=== PATIENT | female | born 1930 | race Caucasian/White ===

== ENCOUNTER 2018-03-17 14:34 | Inpatient (IN) | payer MEDICARE, OTHER ==
[~2018-03-17] VITALS: Ht 157.5 cm; Wt 64.0 kg
[2018-03-17 16:05] VITALS: BP 202/91
[2018-03-17] MEDS ORDERED: FOLI1TAB24 PO (16:08)
[2018-03-17] MEDS ORDERED: OMG1KC PO (16:08)
[2018-03-17] MEDS ORDERED: METF500T5 PO (16:08)
[2018-03-17] MEDS ORDERED: METO-333 PO (16:08)
[2018-03-17] MEDS ORDERED: FERR325T24 PO (16:08)
[2018-03-17] MEDS ORDERED: APIX5TAB PO (16:08)
[2018-03-17] MEDS ORDERED: FLEC50TA PO (16:08)
[2018-03-17] MEDS ORDERED: MAGN400T39 PO (16:08)
[2018-03-17] MEDS ORDERED: LISI10TA2 PO (16:08)
[2018-03-17] MEDS ORDERED: NS IV 1000 ML 1,000 ML ONE (16:36)
[2018-03-17] MEDS ORDERED: CRV25T PO (16:45)
[2018-03-17] MEDS ORDERED: SPIR25TA5 PO (16:45)
[2018-03-17] MEDS ORDERED: HYDR-3923 PO (16:45)
[2018-03-17] MEDS ORDERED: LISI-552 PO (16:45)
[2018-03-17 16:52] LABS: BASOPHILS % (AUTO) 0 % (0-10); EOSINOPHILS # (AUTO) 0.4 10^3/uL (0.0-0.3); EOSINOPHILS % (AUTO) 4 % (0-10); HEMATOCRIT 34 % (35-52); HEMOGLOBIN 11.5 G/DL (11.5-16.0); LYMPHOCYTES # (AUTO) 3.1 X 10^3 (1.0-4.0); LYMPHOCYTES % (AUTO) 34 % (12-44); MEAN CORPUSCULAR HEMOGLOBIN 29 PG (25-34); MEAN CORPUSCULAR HGB CONC 34 G/DL (32-36); MEAN CORPUSCULAR VOLUME 83 FL (80-99); MONOCYTES # (AUTO) 0.9 X 10^3 (0.0-1.0); MONOCYTES % (AUTO) 10 % (0-12); NEUTROPHILS # (AUTO) 4.8 X 10^3 (1.8-7.8); NEUTROPHILS % (AUTO) 52 % (42-75); PLATELET COUNT 222 10^3/uL (130-400); RED BLOOD COUNT 4.03 10^6/uL (4.35-5.85); WHITE BLOOD COUNT 9.2 10^3/uL (4.3-11.0)
[2018-03-17] MEDS ORDERED: AMLO5TAB2 PO (16:52)
--- NOTE | 2018-03-17 16:53 | History & Physical-Hospitalist ---
History of Present Illness HPI/Chief Complaint This is an 87-year-old white female who was accepted in transfer from the [facility] emergency room with hypercalcemia. The patient has known history of cancer of the breast status post mastectomy and renal cell carcinoma and nephrectomy of one kidney and then partial nephrectomy of another for recurrent malignancies. Per her history today noticed some abnormalities of her liver as well. her calcium was found to be 14.1 in [place] Exam Limitations: clinical condition Date Seen 03/17/18 Time Seen by Provider: 17:00 Attending Physician Alannah Meehan MD PCP Randal Roy DO Referring Physician Date of Admission Mar 17, 2018 at 16:21 Home Medications & Allergies Home Medications Reviewed patient Home Medication Reconciliation performed by pharmacy medication reconciliations clinical technician and/or nursing. Patients Allergies have been reviewed. Past Tqsavbi-Hyxuih-Dilnqn Hx Past Med/Social Hx: Reviewed Nursing Past Med/Soc Hx Patient Social History Marrital Status: Employed/Student: retired Past Medical History Surgeries: Appendectomy, Breast (Bilateral mastectomies), Hysterectomy, Pacemaker, Renal Cardiac: Atrial Fibrillation, Hypertension Cancer: Breast, Kidney Psychosocial: Depression (Her daughter recently ) Review of Systems Constitutional: weakness, weight loss EENTM: no symptoms reported Respiratory: dyspnea on exertion Cardiovascular: no symptoms reported Gastrointestinal: constipation, loss of appetite Genitourinary: no symptoms reported Musculoskeletal: no symptoms reported Skin: no symptoms reported Psychiatric/Neurological: Weakness Physical Exam Physical Exam Vital Signs Capillary Refill : Height, Weight, BMI Height: '" Weight: lbs. oz. kg; BMI Method: General Appearance: Chronically ill HEENT: Other (Dry oral mucosa) Neck: Limited Range of Motion Respiratory: Lungs Clear, Normal Breath Sounds, No Accessory Muscle Use, No Respiratory Distress Cardiovascular: Systolic Murmur, Irregularly Irregular Gastrointestinal: Normal Bowel Sounds, Non Tender, Soft Rectal: Deferred Back: Normal Inspection Extremity: Non Tender, No Calf Tenderness Neurologic/Psychiatric: Disoriented Skin: Ecchymosis, Pallor Results Results/Procedures Labs Patient resulted labs reviewed. Assessment/Plan Admission Diagnosis Hypercalcemia Admission Status: Observation Assessment and Plan 1. Hypercalcemia uncertain etiology-probably related to malignancy 2. History cancer of the breast.Per The patient no evidence of disease 3. History renal cell carcinoma status post nephrectomy 4. Atrial fibrillation 5. History of sick sinus syndrome status post pacemaker placement 6. Dehydration 7. Hypertension the patient is a poor historian and I'm unsure which medications she is taking and not 8. History of metastatic lesions to the liver per history although I have no documentation of that Plan to admit for aggressive IV fluids oncology consult and further evaluation Copy Copies To 1: RANDAL ROY KATHLEEN M MD Mar 17, 2018 16:53
[2018-03-17] MEDS: NS IV 1000 ML 1,000 ML IV SCH ×3 (17:00→23:50)
[2018-03-17 17:16] LABS: ALBUMIN 4.1 GM/DL (3.2-4.5); BILIRUBIN,TOTAL 0.9 MG/DL (0.1-1.0); CREATININE SERUM 1.52 MG/DL (0.60-1.30); MAGNESIUM 1.3 MG/DL (1.8-2.4); POTASSIUM 3.8 MMOL/L (3.6-5.0); TOTAL PROTEIN 7.2 GM/DL (6.4-8.2)
[2018-03-17 17:20] LABS: CALCIUM 13.9 MG/DL (8.5-10.1)
[2018-03-17] MEDS ORDERED: CALCITONIN 400 IUNITS/2 ML INJ (MIACALCIN) VIAL IJ ONE (19:15)
[2018-03-17 19:30] VITALS: BP 157/78
--- NOTE | 2018-03-17 19:34 | Consultation ---
History of Present Illness History of Present Illness Patient Consulted On(korin/time) 03/17/18 19:13 Date Seen by Provider: Mar 17, 2018 Time Seen by Provider: 19:50 History of Present Illness Ms. Kaur is an 87 yo female with h/o breast ca s/p bilateral mastectomies and kidney cancer s/p left partial nephrectomy and prior right nephrectomy. She was seen in the ED in [place] for progressive weakness. Patient said it all began earlier this year when she developed severe fatigue and was found to have a hgb of ~5. She was admitted to [facility] in the [place] and transfused several units of blood. She underwent EGD, colonoscopy and capsule endoscopy as an outpatient but there was no clear source of bleeding. She never recovered from fatigue since then. She has been to [facility] multiple times and [facility] once without any answers. She was seen in the [place] ED on 03/10 and was noted to have multiple liver lesions on CT abd/pelv. Outpatient follow up was planned. When patient was seen today, she was found to have a serum calcium of 14.1 (it was 9.8 on 03/10). Hgb was 10.8, WBC 8.52, plt 187, MCV 85.8, differential normal, ALT 46, alk phos 201, creatinine 1.6, eGFR 31. She was given IVF at least 1L and lasix 40mg IV in the ED prior to transfer. Patient mainly complains of fatigue and weakness. She also feels confused and has been having issues with her memory. Allergies and Home Medications Allergies Coded Allergies: No Known Drug Allergies (Unverified , 03/17/18) Home Medications Carvedilol 25 Mg Tab, 12.5 MG PO BID, (Reported) LAST FILLED #30 09-14-17 TAKES 1/2 (25MG) TABLET Lisinopril 20 Mg Tablet, 20 MG PO BID, (Reported) LAST FILLED #180 09-03-17 Spironolactone 25 Mg Tablet, 25 MG PO DAILY, (Reported) Patient Home Medication List Home Medication List Reviewed: Yes Past Pgrzuxk-Eamrbz-Trkmrx Hx Past Med/Social Hx: Reviewed Nursing Past Med/Soc Hx Patient Social History Alcohol Use: Denies Use Recreational Drug Use: Yes Smoking Status: Never a Smoker Recent Hopitalizations: No Seasonal Allergies Seasonal Allergies: No Past Medical History Surgeries: Yes Appendectomy, Breast (Bilateral mastectomies), Hysterectomy, Pacemaker, Renal Respiratory: Yes Sleep Apnea Currently Using CPAP: Yes Currently Using BIPAP: No Cardiac: Yes (pace maker) Atrial Fibrillation, Hypertension Neurological: No Genitourinary: No Gastrointestinal: Yes Chronic Constipation, Ulcer Musculoskeletal: Yes (recent falls) Endocrine: Yes HEENT: No Cancer: Yes Breast, Kidney Did You Recieve Any Treatments: Yes What Type of Treatment Did You: Surgical Intervention Psychosocial: Yes Depression (Her daughter recently ) Integumentary: No Blood Disorders: No Review of Systems-General Constitutional: see HPI, malaise, weakness EENTM: no symptoms reported Respiratory: no symptoms reported Cardiovascular: no symptoms reported Gastrointestinal: No abdominal pain; constipation; No diarrhea, No hematemesis ; loss of appetite; No nausea, No vomiting Genitourinary: no symptoms reported Musculoskeletal: No back pain, No joint pain, No muscle pain; muscle weakness Skin: no symptoms reported Psychiatric/Neurological: Denies Headache, Denies Numbness, Denies Paresthesia ; Weakness Physical Exam-General Problems Physical Exam Vital Signs Vital Signs - First Documented 03/17/18 16:05 Temp 97.4 Pulse 78 Resp 20 B/P (MAP) 202/91 (128) Pulse Ox 94 O2 Delivery Room Air Capillary Refill : General Appearance: WD/WN, no apparent distress Eyes: Bilateral Eye Normal Inspection, Bilateral Eye EOMI HEENT: normal ENT inspection Neck: full range of motion, supple, normal inspection Respiratory: chest non-tender, lungs clear, normal breath sounds, no respiratory distress, no accessory muscle use Cardiovascular: regular rate, rhythm, no edema, no murmur Peripheral Pulses: 2+ Radial Pulses (L) Gastrointestinal: normal bowel sounds, non tender, soft, no organomegaly, no pulsatile mass Back: normal inspection, no CVA tenderness, no vertebral tenderness Extremities: normal range of motion, non-tender, normal inspection, no pedal edema Neurologic/Psychiatric: artificial insemination technician II-XII nml as tested, no motor/sensory deficits, alert, normal mood/affect Skin: normal color, warm/dry Lymphatic: no adenopathy Assessment/Plan Assessment/Plan Admission Diagnosis/Plan 87 yo female with history of multiple malignancies presents with symptomatic severe hypercalcemia and numerous liver lesions. Findings extremely suspicious for metastatic cancer. We do not have records of her previous cancer care, which was done primarily by [facility] in the [place] area. We will address hypercalcemia acutely with aggressive hydration, diuretics, calcitonin and bisphosphonates. We will give calcitonin 4 IU/kg and pamidronate 90mg IV now. If there is some improvement by the morning but not normalization, would suggest giving calcitonin repeatedly every 6 hours for at least 24 hours. Once the hypercalcemia has been addressed, we should repeat restaging CTs with contrast along with nm bone scans or PET/CT (the latter scans probably as outpatient). Finally, we should have one of the abnormal lesions (probably liver) biopsied to confirm the diagnosis of cancer. Thank you for allowing me to participate in the care of Ms. Kaur. I will continue to follow along. Results Labs Labs Laboratory Tests 03/17/18 16:40: White Blood Count 9.2, Red Blood Count 4.03L, Hemoglobin 11.5, Hematocrit 34L, Mean Corpuscular Volume 83, Mean Corpuscular Hemoglobin 29, Mean Corpuscular Hemoglobin Concent 34, Red Cell Distribution Width 14.0, Platelet Count 222, Mean Platelet Volume 10.0, Neutrophils (%) (Auto) 52, Lymphocytes (%) (Auto) 34 , Monocytes (%) (Auto) 10, Eosinophils (%) (Auto) 4, Basophils (%) (Auto) 0, Neutrophils # (Auto) 4.8, Lymphocytes # (Auto) 3.1, Monocytes # (Auto) 0.9, Eosinophils # (Auto) 0.4H, Basophils # (Auto) 0.0, Sodium Level 137, Potassium Level 3.8, Chloride Level 98, Carbon Dioxide Level 30, Anion Gap 9, Blood Urea Nitrogen 29H, Creatinine 1.52H, Estimat Glomerular Filtration Rate 33, BUN/ Creatinine Ratio 19, Glucose Level 117H, Calcium Level 13.9*H, Phosphorus Level 3.4, Magnesium Level 1.3L, Total Bilirubin 0.9, Aspartate Amino Transf (AST/SGOT ) 33, Alanine Aminotransferase (ALT/SGPT) 46, Alkaline Phosphatase 205H, Total Protein 7.2, Albumin 4.1, Thyroid Stimulating Hormone (TSH) 1.66 03/17/18 18:20: Glucometer 105 ANALI DESOUZA MD Mar 17, 2018 19:34
[2018-03-17] MEDS ORDERED: NS IV NR (19:45)
[2018-03-17] MEDS ORDERED: PAMIDRONATE IV NR (19:45)
[2018-03-17] MEDS ORDERED: NS IV SCH (19:45)
[2018-03-17] MEDS ORDERED: PAMIDRONATE IV SCH (19:45)
[2018-03-17] MEDS ORDERED: CALCITONIN NASAL 200 INTLU/AC (FORTICAL) 3.7 ML BTL NR (20:00)
[2018-03-18] VITALS (10 sets, daily range): BP systolic 144–196; BP diastolic 68–87
[2018-03-18] MEDS: NS IV 1000 ML 1,000 ML IV SCH ×4 (04:15→23:18)
[2018-03-18 09:07] LABS: BASOPHILS % (AUTO) 0 % (0-10); EOSINOPHILS # (AUTO) 0.3 10^3/uL (0.0-0.3); EOSINOPHILS % (AUTO) 4 % (0-10); HEMATOCRIT 27 % (35-52); LYMPHOCYTES # (AUTO) 0.9 X 10^3 (1.0-4.0); LYMPHOCYTES % (AUTO) 16 % (12-44); MEAN CORPUSCULAR HEMOGLOBIN 28 PG (25-34); MEAN CORPUSCULAR HGB CONC 33 G/DL (32-36); MEAN CORPUSCULAR VOLUME 85 FL (80-99); MEAN PLATELET VOLUME 9.9 FL (7.4-10.4); MONOCYTES # (AUTO) 0.5 X 10^3 (0.0-1.0); MONOCYTES % (AUTO) 8 % (0-12); NEUTROPHILS # (AUTO) 4.2 X 10^3 (1.8-7.8); NEUTROPHILS % (AUTO) 72 % (42-75); PLATELET COUNT 153 10^3/uL (130-400); RED BLOOD COUNT 3.22 10^6/uL (4.35-5.85); RED CELL DISTRIBUTION WIDTH 14.2 % (10.0-14.5); WHITE BLOOD COUNT 5.9 10^3/uL (4.3-11.0)
[2018-03-18 09:28] LABS: ALBUMIN 3.1 GM/DL (3.2-4.5); BILIRUBIN,TOTAL 0.6 MG/DL (0.1-1.0); CALCIUM 10.7 MG/DL (8.5-10.1); CREATININE SERUM 1.33 MG/DL (0.60-1.30); POTASSIUM 3.4 MMOL/L (3.6-5.0); TOTAL PROTEIN 5.3 GM/DL (6.4-8.2)
[2018-03-18] MEDS ORDERED: CARVEDILOL 12.5 MG (COREG) TABLET PO SCH (09:45)
[2018-03-18] MEDS: lisINopril 20 MG (PRINIVIL) TABLET PO SCH ×2 (10:29→20:16)
[2018-03-18] MEDS ORDERED: CALCITONIN 400 IUNITS/2 ML INJ (MIACALCIN) VIAL IM SCH (11:15)
--- NOTE | 2018-03-18 12:34 | Progress Note-Hospitalist ---
Subjective HPI/CC On Admission Date Seen by Provider: Mar 18, 2018 Time Seen by Provider: 11:00 This is an 87-year-old white female who was accepted in transfer from the [facility] emergency room with hypercalcemia. The patient has known history of cancer of the breast status post mastectomy and renal cell carcinoma and nephrectomy of one kidney and then partial nephrectomy of another for recurrent malignancies. Per her history today noticed some abnormalities of her liver as well. her calcium was found to be 14.1 in [place] Subjective/Events-last exam Long discussion with 2-3 different visits with the patient and then with her [id number] and combining the nurse and the social science research assistant. Over 1 hour in time spent with the patient and all today. the patient is been very resistant to staying here and getting evaluation and has not been forthcoming about physicians that she would like to see in follow-up. He is however much more lucid today and a better historian with her calcium almost back to normal. We are tentatively thinking about discharging her today however she now acquiesces to getting a liver biopsy for diagnosis and then possible treatment. She has been unable to really function very well at home and will need to be set up for home health care on discharge. In addition she'll probably require Meals on Wheels and follow up with Dr. VASQUEZ in [place] will have to be organized. Review of Systems Neurological: Weakness, Confusion Objective Exam Vital Signs Vital Signs Date Time Temp Pulse Resp B/P (MAP) Pulse Ox O2 Delivery O2 Flow Rate FiO2 03/18/18 13:00 62 03/18/18 08:48 97.0 18 188/73 (111) 94 Room Air Capillary Refill : General Appearance: No Apparent Distress, Chronically ill Neck: Limited Range of Motion Respiratory: Lungs Clear, Normal Breath Sounds, No Accessory Muscle Use, No Respiratory Distress Cardiovascular: Regular Rate, Rhythm, No Gallop, Systolic Murmur Gastrointestinal: Normal Bowel Sounds, Non Tender, Soft Rectal: Deferred Back: Normal Inspection Extremity: No Pedal Edema Results/Procedures Lab Laboratory Tests 03/17/18 16:40 03/18/18 08:57 Patient resulted labs reviewed. Assessment/Plan Assessment and Plan Assess & Plan/Chief Complaint 1. Hypercalcemia uncertain etiology-probably related to malignancy-have discussed with Dr. Khan and will try and get a liver biopsy today 2. History cancer of the breast.Per The patient no evidence of disease 3. History renal cell carcinoma status post nephrectomy 4. Atrial fibrillation 5. History of sick sinus syndrome status post pacemaker placement 6. Dehydration 7. Hypertension the patient is a poor historian and I'm unsure which medications she is taking -we will increase her Coreg to 25 twice a day 8. History of metastatic lesions to the liver -biopsy today 9. Type II diabetes with elevated blood sugars Plan to admit for aggressive IV fluids oncology consult and further evaluation Clinical Quality Measures DVT/VTE Risk/Contraindication: Risk Factor Score Per Nursin RFS Level Per Nursing on Admit: 4+=Very High MATTY BUI MD Mar 18, 2018 12:34
[2018-03-18] MEDS ORDERED: FUROSEMIDE 40 MG/4 ML INJ (LASIX) IVP NR (12:45)
[2018-03-18] MEDS ORDERED: NS IV 1000 ML 1,000 ML ONE (12:49)
[2018-03-18] MEDS ORDERED: LIDOCAINE 1% INJ 20 ML 20 ML VIAL INJ ONE (13:00)
--- NOTE | 2018-03-18 13:15 | Physical Therapy Evaluation ---
PT Evaluation-General Medical Diagnosis Admission Date Mar 17, 2018 at 16:21 Medical Diagnosis: Hypercalcemia Onset Date: Mar 17, 2018 Therapy Diagnosis Therapy Diagnosis: debility/weakness Height/Weight Height (Feet): 5 Height (Inches): 2.00 Weight (Pounds): 141 Weight (Ounces): 0.0 Precautions Precautions/Isolations: Fall Prevention, Standard Precautions Weight Bear Status Right Lower Extremity: Right Weight Bearing/Tolerated Left Lower Extremity: Left Weight Bearing/Tolerated Referral Physician: Zoran Reason for Referral: Evaluation/Treatment Medical History Pertinent Medical History: Atrial Fib, HTN Additional Medical History metastatic breast cancer/renal cell/right nephrectomy/left partial nephrectomy Current History TFR from [facility] [address] with hypercalcemia Reviewed History: Yes Social History Home: Single Level Current Living Status: Alone Entry Into Home: Stairs With Railing PT Steps Into Home: 4 Prior/Core FIM Prior Level of Function Functional [place] Measure 0=Not Assessed/NA 4=Minimal Assistance 1=Total Assistance 5=Supervision or Setup 2=Maximal Assistance 6=Modified [place] 3=Moderate Assistance 7=Complete [place] Bed Mobility: 6 Transfers (B,C,W/C) (FIM): 6 Gait: 6 uses cane or FWW at home PLOF/patient reports fall from squat position to buttocks plugging in a lamp PT Evaluation-Current Subjective Patient agrees to PT. Pain Numeric Pain Scale: 0-No Pain Location: No Pain Reported Objective Patient Orientation: Normal For Age Problem Solving: Fair Attachments: IV ROM/Strength ROM Lower Extremities bilateral LE WNL Strength Lower Extremities 4-/5 grossly bilateral LE all planes Integumentary/Posture Integumentary refer to nursing notes Bowel Incontinence: No Bladder Incontinence: No Posture WFL Neuromuscular (Tone, Coordination, Reflexes) grossly intact Sensory Vision: Functional Hearing: Functional Sensation Right Lower Extremit: Intact Sensation Left Lower Extremity: Intact Transfers Functional [place] Measure 0=Not Assessed/NA 4=Minimal Assistance 1=Total Assistance 5=Supervision or Setup 2=Maximal Assistance 6=Modified [place] 3=Moderate Assistance 7=Complete [place] Transfers (B, C, W/C) (FIM): 5 Scootin Rollin Supine to/from Sit: 5 Sit to/from Stand: 5 Gait Mode of Locomotion: Walk Anticipated Mode of Locomotion: Walk Gait (FIM): 5 Distance (FIM): 3=150 ft Distance: 375' Gait Level of Assist: 5 Gait Assistive Device: FWW Comments/Gait Description slow, steady gait sequence with FWW use Balance Sitting Static: Normal Sitting Dynamic: Normal Standing Static: Normal Standing Dynamic: Normal Assessment/Needs 87 y.o. female, will be seen short term by skilled PT to ensure safe return to home or care facility at maximum LOF. Patient is currently at a SBA LOF, safely , with all gross motor skills. Rehab Potential: Fair PT Short Term Goals Short Term Goals Time Frame: Mar 20, 2018 Transfers (B,C,W/C) (FIM): 6 Gait (FIM): 6 Distance (FIM): 3=150 ft Gait Level of Assist: 6 Gait Assistive Device: FWW PT Plan Problem List Problem List: Safety Treatment/Plan Treatment Plan: Continue Plan of Care Treatment Plan: Bed Mobility, Education, Functional Activity [place], Functional Strength, Gait, Safety, Therapeutic Exercise, Transfers Treatment Duration: Mar 20, 2018 Frequency: 3 times per week Estimated Hrs Per Day: .25 hour per day Patient and/or Family Agrees t: Yes Safety Risks/Education Patient Education: Safety Issues Teaching Recipient: Patient Teaching Methods: Discussion Response to Teaching: Verbalize Understanding Discharge Recommendations Therapy D/C Recommendations: Home w/ Family Support Time/GCodes Time In: 1150 Time Out: 1208 Total Billed Treatment Time: 18 Total Billed Treatment 1 visit EVMod 18 min G Codes Necessary: Yes PT/OT Therapy GCodes Therapy Functional Limitation: Physical Therapy Test(s)/Tool used to determine: FIM Functional Limitation-Current Charge Code: MOBCUR Modifier: CJ Functional Limitation-Goal Charge Code: MOBGOAL Modifier: MERCEDES KEN PT Mar 18, 2018 13:15
[2018-03-18] MEDS ORDERED: RANI150T90 PO (14:09)
[2018-03-18] MEDS ORDERED: METF500T5 PO (14:09)
[2018-03-18] MEDS ORDERED: FLEC50TA PO (14:09)
[2018-03-18] MEDS ORDERED: CHOL10007 PO (14:09)
[2018-03-18] MEDS ORDERED: FERR-23 PO (14:09)
[2018-03-18] MEDS ORDERED: FOLI0.8T PO (14:09)
[2018-03-18] MEDS ORDERED: CRV25T PO (14:09)
[2018-03-18] MEDS ORDERED: ATOR20TA49 PO (14:09)
[2018-03-18 14:20] LABS: PROTHROMBIN TIME PATIENT 13.3 SEC (12.2-14.7)
--- NOTE | 2018-03-18 15:22 | Pre-Procedure Progress Note ---
Pre-Procedure Progress Note H&P Reviewed The H&P was reviewed, patient examined and no changes noted. Date H&P Reviewed: Mar 18, 2018 Time H&P Reviewed: 14:00 Pre-Procedure Diagnosis: Liver mass KRUPA STEPHENS MD Mar 18, 2018 15:22
[2018-03-18] MEDS ORDERED: ACETAMINOPHEN 325 MG TABLET PO PRN (16:00)
--- NOTE | 2018-03-18 16:11 | Diagnostic Imaging Report ---
INDICATION: Liver masses. Patient presents for CT-guided biopsy. PROCEDURE: Patient was brought to the CT suite and placed on the table in the left side down position. Axial imaging through the abdomen was performed to evaluate appropriate entry site. Right abdomen was prepped and draped in the usual sterile fashion. A small amount of 1% lidocaine was utilized for local anesthesia. An 18-gauge coaxial needle was advanced and placed with its tip along the edge of the hypoechoic mass in the inferior right lobe of the liver. Four core biopsies were obtained. The needle was withdrawn and hemostasis was obtained using compression. Patient tolerated the procedure well and left the department in stable condition. IMPRESSION: CT-guided right lobe liver mass biopsy. Pathology results are currently pending. Dictated by: Dictated on workstation # [id number]
[2018-03-18] MEDS: KCL 20 MEQ TAB (K-DUR) PO SCH (17:55)
[2018-03-18] MEDS: CARVEDILOL 12.5 MG (COREG) TABLET PO SCH (20:16)
[2018-03-19] VITALS: BP 161/70
[2018-03-19] MEDS: NS IV 1000 ML 1,000 ML IV SCH (02:13)
[2018-03-19 03:30] VITALS: BP 162/72
[2018-03-19] MEDS: KCL 20 MEQ TAB (K-DUR) PO SCH (06:29)
[2018-03-19 06:39] LABS: BASOPHILS % (AUTO) 1 % (0-10); EOSINOPHILS # (AUTO) 0.3 10^3/uL (0.0-0.3); EOSINOPHILS % (AUTO) 5 % (0-10); HEMATOCRIT 28 % (35-52); HEMOGLOBIN 9.7 G/DL (11.5-16.0); LYMPHOCYTES % (AUTO) 21 % (12-44); MEAN CORPUSCULAR HEMOGLOBIN 29 PG (25-34); MEAN CORPUSCULAR HGB CONC 35 G/DL (32-36); MEAN CORPUSCULAR VOLUME 85 FL (80-99); MONOCYTES # (AUTO) 0.5 X 10^3 (0.0-1.0); MONOCYTES % (AUTO) 10 % (0-12); NEUTROPHILS # (AUTO) 3.1 X 10^3 (1.8-7.8); NEUTROPHILS % (AUTO) 63 % (42-75); PLATELET COUNT 158 10^3/uL (130-400); RED BLOOD COUNT 3.31 10^6/uL (4.35-5.85); RED CELL DISTRIBUTION WIDTH 14.1 % (10.0-14.5); WHITE BLOOD COUNT 4.9 10^3/uL (4.3-11.0)
[2018-03-19 07:05] LABS: ALBUMIN 3.3 GM/DL (3.2-4.5); BILIRUBIN,TOTAL 0.8 MG/DL (0.1-1.0); CALCIUM 10.2 MG/DL (8.5-10.1); CREATININE SERUM 1.26 MG/DL (0.60-1.30); POTASSIUM 3.2 MMOL/L (3.6-5.0); TOTAL PROTEIN 5.5 GM/DL (6.4-8.2)
[2018-03-19 08:00] VITALS: BP 152/76
[2018-03-19] MEDS: lisINopril 20 MG (PRINIVIL) TABLET PO SCH (08:08)
[2018-03-19] MEDS: CARVEDILOL 12.5 MG (COREG) TABLET PO SCH (08:08)
[2018-03-19] MEDS: MAGNESIUM 1 GM/100 ML IVPB 100 ML IV SCH ×2 (08:10→09:16)
--- NOTE | 2018-03-19 10:26 | D/C HH Face to Face Order ---
D/C Face to Face Orders Instructions for Patient Patient Instructions/FollowUp: Patient needs a CBC and a chem 12 and a magnesium on Thursday and Fridays for the next 2-3 weeks. Results need to go to Dr. Ander Roy. Patient has an appointment to see Dr. Ander Roy on March 23 at 915 a.m. she will need blood pressure checks and pulse rate monitoring Physician to follow Patient: Dr. Ander Roy Discharge Diet for Home: Regular Diet Patient Problems: Hypercalcemia of malignancy Hypertension Atrial fibrillation Hypomagnesemia Hypokalemia Goals for Patient: Normalization of lab values and increased strength Patient Data-Allergies,Ht & Wt Patient Allergies: Coded Allergies: Sulfa (Sulfonamide Antibiotics) (Verified Allergy, Unknown, 03/17/18) nitrofurantoin (Verified Allergy, Unknown, 03/17/18) Height (Feet): 5 Height (Inches): 2.00 Weight (Pounds): 141 Weight (Ounces): 0.0 Home Health Need/Face to Face Date of Face to Face: Mar 19, 2018 Clinical Findings: Generalized weakness and fatigue I have seen Pt [id number]: Yes Discharged To: Home Diagnosis/Conditions: Hypercalcemia of malignancy Hypertension Atrial fibrillation Hypomagnesemia Hypokalemia Cancer of the breast no evidence of disease History renal cell carcinoma of the kidneys Hepatic masses etiology to be determined Patient is Homebound due to: Muscle weakness Homebound Status Due to the above stated illness, injury or surgical procedure (medical condition or diagnosis) and associated clinical findings, the patient is homebound because of his/her inability to leave home except with aid of a supportive device and/or person AND leaving the home requires a considerable and taxing effort or is medically contraindicated. Pt req the following assistanc: Aid of another person Home Health Nursing Orders Home Health Services Order: Nursing Services Chem 12, magnesium level, CBC on Thursday and Fridays results to Dr. Ander Roy Blood pressure and pulse check Home Health Infusion Therapy Line Type: Peripheral IV Site Location: Forearm Home Health Lab Orders Labs (specify type/freq): cbc, magnesium, chem 12 on MWF Certify Stmt I certify that this patient is under my care and that I, a nurse practitioner or a physician; a financial sales assistant working with me, had a face to face encounter that - meets the physician face to face encounter requirements with this patient as dated. MATTY BUI MD Mar 19, 2018 10:26
--- NOTE | 2018-03-19 10:37 | Discharge Summary-Hospitalist ---
Diagnosis/Chief Complaint Date of Admission Mar 18, 2018 at 15:00 Date of Discharge 03/19/18 Discharge Date: Mar 19, 2018 Discharge Time: 12:00 Admission Diagnosis Hypercalcemia Discharge Diagnosis Hypercalcemia of malignancy Hypertension A. fib atrial fibrillation-by history History of sick sinus syndrome status post pacemaker placement History renal cell carcinoma History of cancer of the breasts Hypomagnesemia Anemia Discharge Summary Procedures/Consulations CT-guided liver biopsy Dr. Fiorella Martinez Discharge Physical Exam Allergies: Coded Allergies: Sulfa (Sulfonamide Antibiotics) (Verified Allergy, Unknown, 03/17/18) nitrofurantoin (Verified Allergy, Unknown, 03/17/18) Vitals & I&Os Vital Signs Date Time Temp Pulse Resp B/P (MAP) Pulse Ox O2 Delivery O2 Flow Rate FiO2 03/19/18 08:00 97.4 84 16 152/76 (101) 94 Room Air General Appearance: Alert, Oriented X3, Cooperative Respiratory: Clear to Auscultation Cardiovascular: Regular Rate, Normal S1, Normal S2, Other (2/6 systolic murmur) Abdominal: Normal Bowel Sounds, Soft Extremities: No Clubbing, No Cyanosis Skin: No Rashes, No Breakdown Neuro: Normal Gait, Normal Speech, Strength at 5/5 X4 Ext Psych/Mental Status: Mental Status NL Hospital Course This is an 87-year-old white female who was accepted in transfer from the emergency room at [facility]. The patient's calcium was over 14 at the time of admission with patient's weakness and confusion accompanying this. The patient was given aggressive IV fluid hydration with Lasix. Calcitonin was ordered but not available for injection. The patient had an injection of pamidronate IV to lower the calcium. At the time of discharge it is 10.2. The patient has had a low hemoglobin at's been stable at 9.7 and a low magnesium which has been replaced. The patient was seen in consultation by Dr. Martinez who recommended liver biopsy. This was accomplished without complication by Dr. Khan with the biopsies pending at this time. The patient's blood pressure was initially elevated and after restarting her medications as gone down to the systolic and 140s to 150s. Her mental status has cleared and her strength is improved. She is being discharged with home health care since she is home bound with orders for CBC chem 12 and a magnesium level on Thursday and Fridays to be sent to Dr. Ander Roy. I have spoken with Harriet at Dr. Roy's office about Ms. Duggan's discharge and planning. She is currently stable for discharge. Labs (last 24 hrs) Laboratory Tests 03/18/18 11:02: Glucometer 207H 03/18/18 15:43: Glucometer 134H 03/18/18 20:54: Glucometer 128H 03/19/18 05:05: Glucometer 106 03/19/18 05:38: White Blood Count 4.9, Red Blood Count 3.31L, Hemoglobin 9.7L, Hematocrit 28L, Mean Corpuscular Volume 85, Mean Corpuscular Hemoglobin 29, Mean Corpuscular Hemoglobin Concent 35, Red Cell Distribution Width 14.1, Platelet Count 158, Mean Platelet Volume 10.0, Neutrophils (%) (Auto) 63, Lymphocytes (%) (Auto) 21 , Monocytes (%) (Auto) 10, Eosinophils (%) (Auto) 5, Basophils (%) (Auto) 1, Neutrophils # (Auto) 3.1, Lymphocytes # (Auto) 1.0, Monocytes # (Auto) 0.5, Eosinophils # (Auto) 0.3, Basophils # (Auto) 0.0, Sodium Level 139, Potassium Level 3.2L, Chloride Level 106, Carbon Dioxide Level 23, Anion Gap 10, Blood Urea Nitrogen 18, Creatinine 1.26, Estimat Glomerular Filtration Rate 40, BUN/ Creatinine Ratio 14, Glucose Level 92, Calcium Level 10.2H, Magnesium Level 1.0* L, Total Bilirubin 0.8, Aspartate Amino Transf (AST/SGOT) 25, Alanine Aminotransferase (ALT/SGPT) 24, Alkaline Phosphatase 136, B-Type Natriuretic Peptide 329.2H, Total Protein 5.5L, Albumin 3.3 Patient resulted labs reviewed. Pending Labs Laboratory Tests 03/19/18 05:05: Glucometer 106 03/19/18 05:38: White Blood Count 4.9, Red Blood Count 3.31, Hemoglobin 9.7, Hematocrit 28, Mean Corpuscular Volume 85, Mean Corpuscular Hemoglobin 29, Mean Corpuscular Hemoglobin Concent 35, Red Cell Distribution Width 14.1, Platelet Count 158, Mean Platelet Volume 10.0, Neutrophils (%) (Auto) 63, Lymphocytes (%) (Auto) 21 , Monocytes (%) (Auto) 10, Eosinophils (%) (Auto) 5, Basophils (%) (Auto) 1, Neutrophils # (Auto) 3.1, Lymphocytes # (Auto) 1.0, Monocytes # (Auto) 0.5, Eosinophils # (Auto) 0.3, Basophils # (Auto) 0.0, Sodium Level 139, Potassium Level 3.2, Chloride Level 106, Carbon Dioxide Level 23, Anion Gap 10, Blood Urea Nitrogen 18, Creatinine 1.26, Estimat Glomerular Filtration Rate 40, BUN/ Creatinine Ratio 14, Glucose Level 92, Calcium Level 10.2, Magnesium Level 1.0, Total Bilirubin 0.8, Aspartate Amino Transf (AST/SGOT) 25, Alanine Aminotransferase (ALT/SGPT) 24, Alkaline Phosphatase 136, B-Type Natriuretic Peptide 329.2, Total Protein 5.5, Albumin 3.3 Other pending tests Liver biopsy Imaging: Reviewed Imaging Report Discussion & Recommendations Discharge Planning: >30 minutes discharge planning Discharge Home Medications: Active Scripts Active Reported Ferrousul (Ferrous Sulfate) 325 Mg Tablet 325 Mg PO DAILY Folic Acid 0.8 Mg Tablet 0.8 Mg PO DAILY Coreg (Carvedilol) 25 Mg Tab 25 Mg PO BID Acid Spare Fixer (RANITIDINE) (Ranitidine HCl) 150 Mg Tablet 150 Mg PO BID Lisinopril 20 Mg Tablet 20 Mg PO BID Spironolactone 25 Mg Tablet 25 Mg PO DAILY Condition at discharge Stable Instructions to patient/family Please see electronic discharge instructions given to patient. Clinical Quality Measures DVT/VTE Risk/Contraindication: Risk Factor Score Per Nursin RFS Level Per Nursing on Admit: 4+=Very High Copy Copies To 1: ANDER ROY KATHLEEN M MD Mar 19, 2018 10:36
--- NOTE | 2018-03-19 11:37 | Physical Therapy Progress Note ---
Therapy Progress Note Patient declined treatment secondary to fatigue. PT will attempt later today. 1 ref ([id number]) MERCEDES CLAYTON PT Mar 19, 2018 11:37
[2018-03-19 12:00] VITALS: BP 140/70
== END 2018-03-19 15:00 | disposition home or self-care (01) | DRG 641 ==
LOC: 4TH 16:00 → UNDOADMOB 16:21 → 4TH 16:21 → OBSVTOIN 03-18 14:58 → INTOOBSV 03-18 15:00 → OBSVTOIN 03-18 15:00 → 4TH 03-19 10:52 → UNDODISIN 03-19 15:00
PROVIDERS: ADMIT Internal Medicine; ATTEND Internal Medicine
PROC: 0FB13ZX Excision of Right Lobe Liver, Percutaneous Approach, Diagnostic (ICD-10-PCS; principal; 2018-03-18)
DX: E83.52 Hypercalcemia (principal); E86.0 Dehydration; I48.91 Unspecified atrial fibrillation; I10 Essential (primary) hypertension; E11.9 Type 2 diabetes mellitus without complications; E83.42 Hypomagnesemia; D64.9 Anemia, unspecified; F32.9 Major depressive disorder, single episode, unspecified; Z85.3 Personal history of malignant neoplasm of breast; Z85.528 Personal history of other malignant neoplasm of kidney; Z90.13 Acquired absence of bilateral breasts and nipples; Z90.5 Acquired absence of kidney; Z90.710 Acquired absence of both cervix and uterus; Z95.0 Presence of cardiac pacemaker
CPT/HCPCS: 36415; 77012; 80053; 82306; 82962; 83735; 83880; 84100; 84443; 85025; 85610; 93005; G0378

== ENCOUNTER 2018-03-26 09:57 | Outpatient (RCR) | payer MEDICARE ==
[~2018-03-26 09:57] MED LIST: AMLO5TAB7 PO; APIX5TAB PO; ATOR20TA49 PO; CHOL10007 PO; CRV25T PO; FERR-23 PO; FERR325T24 PO; FLEC50TA PO; FOLI0.8T PO; FOLI1TAB24 PO; HYDR-3923 PO; LISI-552 PO; LISI10TA2 PO; MAGN400T39 PO; METF-397 PO; METO-333 PO; OMG1KC PO; RANI150T90 PO; SPIR25TA5 PO
[2018-03-26 11:47] LABS: ALBUMIN 4.1 GM/DL (3.2-4.5); BILIRUBIN,TOTAL 0.6 MG/DL (0.1-1.0); CALCIUM 10.7 MG/DL (8.5-10.1); CREATININE SERUM 1.88 MG/DL (0.60-1.30); POTASSIUM 4.4 MMOL/L (3.6-5.0); TOTAL PROTEIN 6.9 GM/DL (6.4-8.2)
== END 2018-03-30 | disposition home or self-care (01) ==
LOC: ONC 09:57
PROVIDERS: ATTEND Internal Medicine Hematology & Oncology
DX: E83.52 Hypercalcemia (principal); K75.3 Granulomatous hepatitis, not elsewhere classified; D86.9 Sarcoidosis, unspecified; I48.91 Unspecified atrial fibrillation; I10 Essential (primary) hypertension; E11.9 Type 2 diabetes mellitus without complications; D64.9 Anemia, unspecified; F32.9 Major depressive disorder, single episode, unspecified; Z85.3 Personal history of malignant neoplasm of breast; Z85.528 Personal history of other malignant neoplasm of kidney; Z90.13 Acquired absence of bilateral breasts and nipples; Z90.5 Acquired absence of kidney; Z90.710 Acquired absence of both cervix and uterus; Z95.0 Presence of cardiac pacemaker
CPT/HCPCS: 36415; 80053; 86480; 99214

== ENCOUNTER → 2018-03-30 | Outpatient (CLI) | payer MEDICARE ==
[~2018-03-30] MED LIST changes: +AMLO5TAB2 PO; -AMLO5TAB7 PO; -METF-397 PO; +METF500T5 PO
--- NOTE | 2018-03-30 13:07 | Diagnostic Imaging Report ---
PROCEDURE: CT chest without contrast. TECHNIQUE: Multiple contiguous axial images were obtained through the chest without the use of intravenous contrast. INDICATION: Sarcoidosis. No prior CT chest studies are available for comparison. FINDINGS: A right chest wall cardiac pacemaker is noted. There are bilateral breast implants. No definite axillary lymphadenopathy is seen. Small lymph nodes in the mediastinum are seen. There are some calcified lymph nodes in the right hilum consistent with prior granulomatous exposure. Mediastinal and hilar evaluation is limited without intravenous contrast. Coronary arterial calcifications and aortic calcifications are noted. There is no pericardial or pleural fluid identified. Pulmonary parenchymal evaluation demonstrates calcified granuloma in the superior segment of right lower lobe. There is some minimal scarring or atelectasis in the right upper lobe. No noncalcified mass is seen. Upper abdomen again demonstrates areas of low density in the right lobe of the liver, recently biopsied. IMPRESSION: 1. Findings consistent with prior granulomatous exposure. The study is otherwise unremarkable. Dictated by: Dictated on workstation # [id number]
== END ==
LOC: RAD 11:01
PROVIDERS: ATTEND Internal Medicine Hematology & Oncology
DX: D86.9 Sarcoidosis, unspecified (principal)
CPT/HCPCS: 71250

== ENCOUNTER 2021-12-16 14:31 | Emergency (ER) | payer MEDICARE ==
[~2021-12-16] VITALS: Ht 157.4 cm; Wt 69.1 kg
[~2021-12-16 14:31] MED LIST changes: +AMLO-250 PO; +AMLO2.5T4 PO; -AMLO5TAB2 PO; +ASPI-1238 PO; +ATOR20TA66 PO; +AZIT250T12 PO; +CARV25TA PO; +CEPH500T PO; -FOLI0.8T PO; +FOLI0.8T4 PO; -FOLI1TAB24 PO; +FOLI1TAB33 PO; -LISI-552 PO; -LISI10TA2 PO; +LISI10TA25 PO; +LISI20TA26 PO; +METF-397 PO; -METF500T5 PO
--- NOTE | 2021-12-16 14:42 | ED General ---
General Stated Complaint: GENERAL WEAKNESS LOW URINE OUTPUT History of Present Illness Date Seen by Provider: Dec 16, 2021 Time Seen by Provider: 14:41 Initial Comments 89-year-old female presents with some generalized weakness and low urine output. Patient reports that since she got out of the hospital on 12/07/2021 with a pneumonia that she has not felt well and feels little bit worse. That she has not felt like eating or drinking much. That she has had low urine output. Patient does not report any increasing or change in her cough, no nausea, no vomiting. Patient just reports that she feels worse but does not elaborate on what she means patient denies any shortness of breath, chest pain, fever or chills. Allergies and Home Medications Allergies Coded Allergies: Sulfa (Sulfonamide Antibiotics) (Verified Allergy, Unknown, 03/17/18) nitrofurantoin (Verified Allergy, Unknown, 03/17/18) Patient Home Medication List Home Medication List Reviewed: Yes Amlodipine Besylate (Amlodipine Besylate) 2.5 Mg Tablet, 2.5 MG PO DAILY, (Reported) Entered as Reported by: TALAT VELASCO on 12/04/21 1055 Aspirin (Aspirin EC) 81 Mg Tablet.dr, 81 MG PO HS, (Reported) Entered as Reported by: TALAT VELASCO on 12/04/21 1055 Atorvastatin Calcium (Atorvastatin Calcium) 20 Mg Tablet, 20 MG PO HS, (Reported) Entered as Reported by: TALAT VELASCO on 12/04/21 1055 Azithromycin (Azithromycin) 250 Mg Tablet, 250 MG PO DAILY Prescribed by: MARIO ALCAZAR on 12/07/21 1016 Carvedilol (Carvedilol) 25 Mg Tablet, 25 MG PO BID, (Reported) Entered as Reported by: TALAT VELASCO on 12/04/21 1055 Cephalexin (Cephalexin) 500 Mg Tablet, 500 MG PO BID Prescribed by: MARIO ALCAZAR on 12/07/21 1016 Flecainide Acetate (Flecainide Acetate) 50 Mg Tablet, 50 MG PO BID, (Reported) Entered as Reported by: TALAT VELASCO on 12/04/21 1055 Folic Acid (Folic Acid) 1 Mg Tablet, 1 MG PO DAILY, (Reported) Entered as Reported by: TALAT VELASCO on 12/04/21 1055 Lisinopril (Lisinopril) 20 Mg Tablet, 20 MG PO BID, (Reported) Entered as Reported by: RADHA RILEY on 03/17/18 4395 Review of Systems Review of Systems Constitutional: No chills, No fever; malaise EENTM: no symptoms reported Respiratory: see HPI Cardiovascular: no symptoms reported Gastrointestinal: no symptoms reported Genitourinary: no symptoms reported Musculoskeletal: no symptoms reported Skin: no symptoms reported Psychiatric/Neurological: No Symptoms Reported Hematologic/Lymphatic: No Symptoms Reported Past Bhmsaho-Myjnmz-Egaeyh Hx Immunizations Up To Date First/Initial COVID19 Vaccinat: completed Second COVID19 Vaccination Yayo: completed and boosted Third COVID19 Vaccination Date: UNKNOWN Seasonal Allergies Seasonal Allergies: No Past Medical History Surgery/Hospitalization HX: Breast cancer, renal cancer, sick sinus syndrome with pacemaker, hypertension, hypercholesterolemia, diabetes Surgeries: Yes Appendectomy, Breast, Hysterectomy, Pacemaker, Renal Respiratory: Yes Sleep Apnea Currently Using CPAP: Yes Currently Using BIPAP: No Cardiac: Yes (pace maker) Atrial Fibrillation, Hypertension Neurological: No Genitourinary: No Gastrointestinal: Yes Chronic Constipation, Ulcer Musculoskeletal: Yes (recent falls) Endocrine: Yes HEENT: No Cancer: Yes Breast, Kidney Did You Recieve Any Treatments: Yes What Type of Treatment Did You: Surgical Intervention Psychosocial: Yes Depression Integumentary: No Blood Disorders: No Family Medical History Patient reports no known family medical history. Daughter of stroke at 54yo Physical Exam Vital Signs Vital Signs - First Documented 12/16/21 14:35 Temp 36.7 Pulse 64 Resp 18 B/P (MAP) 127/54 (78) Capillary Refill : Height, Weight, BMI Height: 5'2.00" Weight: 141lbs. 0.0oz. 63.768671tm; 26.50 BMI Method: General Appearance: No Apparent Distress, WD/WN HEENT: PERRL/EOMI Respiratory: Lungs Clear, Normal Breath Sounds Cardiovascular: Regular Rate, Rhythm, No Edema Gastrointestinal: Non Tender, Soft Extremity: Normal Range of Motion Neurologic/Psychiatric: Alert, Oriented x3, No Motor/Sensory Deficits, Normal Mood/Affect Skin: Normal Color, Warm/Dry Progress/Results/Core Measures Suspected Sepsis SIRS Temperature: Pulse: Respiratory Rate: Laboratory Tests 12/16/21 14:55: White Blood Count 10.5 Blood Pressure / Mean: Laboratory Tests 12/16/21 14:55: Creatinine 1.88H, Platelet Count 229, Total Bilirubin 0.6 Results/Orders Lab Results Laboratory Tests Test 12/16/21 14:55 12/16/21 16:53 Range/Units White Blood Count 10.5 4.3-11.0 10^3/uL Red Blood Count 3.96 3.80-5.11 10^6/uL Hemoglobin 11.3 L 11.5-16.0 g/dL Hematocrit 34 L 35-52 % Mean Corpuscular Volume 85 80-99 fL Mean Corpuscular Hemoglobin 29 25-34 pg Mean Corpuscular Hemoglobin Concent 34 32-36 g/dL Red Cell Distribution Width 13.4 10.0-14.5 % Platelet Count 229 130-400 10^3/uL Mean Platelet Volume 10.0 9.0-12.2 fL Immature Granulocyte % (Auto) 1 % Neutrophils (%) (Auto) 66 42-75 % Lymphocytes (%) (Auto) 20 12-44 % Monocytes (%) (Auto) 8 0-12 % Eosinophils (%) (Auto) 4 0-10 % Basophils (%) (Auto) 1 0-10 % Neutrophils # (Auto) 7.0 1.8-7.8 10^3/uL Lymphocytes # (Auto) 2.1 1.0-4.0 10^3/uL Monocytes # (Auto) 0.9 0.0-1.0 10^3/uL Eosinophils # (Auto) 0.4 H 0.0-0.3 10^3/uL Basophils # (Auto) 0.1 0.0-0.1 10^3/uL Immature Granulocyte # (Auto) 0.1 0.0-0.1 10^3/uL Sodium Level 136 135-145 MMOL/L Potassium Level 4.3 3.6-5.0 MMOL/L Chloride Level 100 98-107 MMOL/L Carbon Dioxide Level 20 L 21-32 MMOL/L Anion Gap 16 H 5-14 MMOL/L Blood Urea Nitrogen 28 H 7-18 MG/DL Creatinine 1.88 H 0.60-1.30 MG/DL Estimat Glomerular Filtration Rate 25 BUN/Creatinine Ratio 15 Glucose Level 106 H 70-105 MG/DL Calcium Level 9.7 8.5-10.1 MG/DL Corrected Calcium 9.5 8.5-10.1 MG/DL Total Bilirubin 0.6 0.1-1.0 MG/DL Aspartate Amino Transf (AST/SGOT) 17 5-34 U/L Alanine Aminotransferase (ALT/SGPT) 9 0-55 U/L Alkaline Phosphatase 116 40-136 U/L C-Reactive Protein < 0.30 <0.50 MG/DL Total Protein 7.0 6.4-8.2 GM/DL Albumin 4.2 3.2-4.5 GM/DL Urine Color YELLOW Urine Clarity CLEAR Urine pH 6.0 5-9 Urine Specific [place] 1.015 L 1.016-1.022 Urine Protein NEGATIVE NEGATIVE Urine Glucose (UA) NEGATIVE NEGATIVE Urine Ketones NEGATIVE NEGATIVE Urine Nitrite NEGATIVE NEGATIVE Urine Bilirubin NEGATIVE NEGATIVE Urine Urobilinogen 0.2 < = 1.0 MG/DL Urine Leukocyte Esterase NEGATIVE NEGATIVE Urine RBC (Auto) NEGATIVE NEGATIVE Urine RBC NONE /HPF Urine WBC RARE /HPF Urine Squamous Epithelial Cells 0-2 /HPF Urine Crystals NONE /LPF Urine Bacteria NEGATIVE /HPF Urine Casts NONE /LPF Urine Mucus SMALL H /LPF Urine Culture Indicated NO My Orders Orders - SAMPSON,CHRIS L DO Cbc With Automated Diff (12/16/21 14:48) Comprehensive Metabolic Panel (12/16/21 14:48) Ua Culture If Indicated (12/16/21 14:48) Crp Fs (12/16/21 14:48) Chest Pa/Lat (2 View) (12/16/21 14:48) Lactated Ringers (Lr 1000 Ml Iv Solution (12/16/21 14:48) Vital Signs/I&O 12/16/21 14:35 Temp 36.7 Pulse 64 Resp 18 B/P (MAP) 127/54 (78) Capillary Refill : Progress Note : Progress Note Patient with some mild dehydration and an acute on chronic renal insufficiency. Patient is feeling significantly better following some IV fluids. Patient's labs are otherwise near her baseline. Patient stable and discharged home. I encouraged her to make sure she drinks plenty of fluids. She should follow with her primary care provider in a week to recheck symptoms. Diagnostic Imaging Diagonstic Imaging: Xray Plain Films/CT/US/NM/MRI: chest Comments Date of Exam:12/16/21 CHEST PA/LAT (2 VIEW) INDICATION: Cough and weakness. TIME OF EXAM: 03:11 p.m. COMPARISON: Comparison is made with prior chest from 12/04/2021. FINDINGS: Heart size is stable. Cardiac pacers are in place. There is no infiltrate seen. There is no effusion or pneumothorax. IMPRESSION: No acute cardiopulmonary process is detected. Departure Impression Primary Impression: Acute on chronic renal insufficiency Additional Impression: Dehydration, mild Disposition: 01 HOME, SELF-CARE Condition: Stable Departure-Patient Inst. Referrals: NO,LOCAL PHYSICIAN (PCP) Primary Care Physician Patient Instructions: Dehydration, Adult ED CHRIS SAMPSON DO Dec 16, 2021 14:41
[2021-12-16] MEDS ORDERED: LACTATED RINGERS 1,000 ML IV STA (14:48)
[2021-12-16 15:12] LABS: BASOPHILS # (AUTO) 0.1 10^3/uL (0.0-0.1); BASOPHILS % (AUTO) 1 % (0-10); EOSINOPHILS # (AUTO) 0.4 10^3/uL (0.0-0.3); EOSINOPHILS % (AUTO) 4 % (0-10); HEMATOCRIT 34 % (35-52); HEMOGLOBIN 11.3 g/dL (11.5-16.0); LYMPHOCYTES # (AUTO) 2.1 10^3/uL (1.0-4.0); LYMPHOCYTES % (AUTO) 20 % (12-44); MEAN CORPUSCULAR HEMOGLOBIN 29 pg (25-34); MEAN CORPUSCULAR HGB CONC 34 g/dL (32-36); MEAN CORPUSCULAR VOLUME 85 fL (80-99); MONOCYTES # (AUTO) 0.9 10^3/uL (0.0-1.0); MONOCYTES % (AUTO) 8 % (0-12); NEUTROPHILS % (AUTO) 66 % (42-75); PLATELET COUNT 229 10^3/uL (130-400); WHITE BLOOD COUNT 10.5 10^3/uL (4.3-11.0)
--- NOTE | 2021-12-16 15:20 | Diagnostic Imaging Report ---
INDICATION: Cough and weakness. TIME OF EXAM: 03:11 p.m. COMPARISON: Comparison is made with prior chest from 12/04/2021. FINDINGS: Heart size is stable. Cardiac pacers are in place. There is no infiltrate seen. There is no effusion or pneumothorax. IMPRESSION: No acute cardiopulmonary process is detected. Dictated by: Dictated on workstation # [id number]
[2021-12-16 15:23] LABS: POTASSIUM 4.3 MMOL/L (3.6-5.0); SODIUM 136 MMOL/L (135-145)
[2021-12-16 15:24] LABS: ALANINE AMINOTRANSFERASE 9 U/L (0-55); ALBUMIN 4.2 GM/DL (3.2-4.5); ALKALINE PHOSPHATASE 116 U/L (40-136); BILIRUBIN,TOTAL 0.6 MG/DL (0.1-1.0); BUN/CREATININE RATIO 15; CALCIUM 9.7 MG/DL (8.5-10.1); CARBON DIOXIDE 20 MMOL/L (21-32); CHLORIDE 100 MMOL/L (98-107); CREATININE SERUM 1.88 MG/DL (0.60-1.30); GFR ESTIMATED 25; GLUCOSE 106 MG/DL (70-105)
[2021-12-16 16:59] LABS: BILIRUBIN,URINE NEGATIVE (NEGATIVE); CLARITY,URINE CLEAR; COLOR,URINE YELLOW; GLUCOSE, URINE (UA) NEGATIVE (NEGATIVE); KETONES,URINE NEGATIVE (NEGATIVE); LEUKOCYTE ESTERASE ,URINE NEGATIVE (NEGATIVE); NITRITE,URINE NEGATIVE (NEGATIVE); PROTEIN,URINE NEGATIVE (NEGATIVE)
[2021-12-16 17:04] LABS: BACTERIA,URINE NEGATIVE /HPF; SQUAMOUS EPITHELIAL CELL,UR 0-2 /HPF; WBC,URINE RARE /HPF
[2021-12-16 18:35] VITALS: BP 163/58
== END 2021-12-16 18:35 | disposition home or self-care (01) ==
LOC: EDUNIT# 14:31 → ER FS 14:34
DX: N18.9 Chronic kidney disease, unspecified (principal); E86.0 Dehydration
CPT/HCPCS: 36415; 71046; 80053; 81000; 85025; 86141

== ENCOUNTER 2022-01-27 10:32 | Emergency (ER) | payer MEDICARE ==
[~2022-01-27] VITALS: Ht 157.5 cm; Wt 68.9 kg
--- NOTE | 2022-01-27 10:52 | ED General ---
General Chief Complaint: General Problems/Pain Stated Complaint: GEN WEAKNESS Source of Information: Patient History of Present Illness Date Seen by Provider: January 27, 2022 Time Seen by Provider: 10:52 Initial Comments Patient is an 89-year-old female presents with generalized weakness malaise. Patient denies fever chills, nausea vomiting or sweats. She denies headache, blurred vision, chest pain, palpitations, shortness of breath. Denies abdominal pain. No urinary frequency urgency or dysuria. No constipation or diarrhea. No missed medication change in medications. No other acute symptoms or complain ts. Patient was hospitalized approximately 3 weeks ago for dehydration. She states she has had similar symptoms with dehydration and urinary tract infections. Timing/Duration: 1-2 Days Severity: Moderate Modifying Factors: improves with Other Associated Systoms: Other Allergies and Home Medications Allergies Coded Allergies: Sulfa (Sulfonamide Antibiotics) (Verified Allergy, Unknown, 03/17/18) nitrofurantoin (Verified Allergy, Unknown, 03/17/18) Patient Home Medication List Home Medication List Reviewed: Yes Amlodipine Besylate (Amlodipine Besylate) 2.5 Mg Tablet, 2.5 MG PO DAILY, (Reported) Entered as Reported by: TALAT VELASCO on 12/04/21 1055 Aspirin (Aspirin EC) 81 Mg Tablet.dr, 81 MG PO HS, (Reported) Entered as Reported by: TALAT VELASCO on 12/04/21 1055 Atorvastatin Calcium (Atorvastatin Calcium) 20 Mg Tablet, 20 MG PO HS, (Reported) Entered as Reported by: TALAT VELASCO on 12/04/21 1055 Azithromycin (Azithromycin) 250 Mg Tablet, 250 MG PO DAILY Prescribed by: MARIO ALCAZAR on 12/07/21 1016 Carvedilol (Carvedilol) 25 Mg Tablet, 25 MG PO BID, (Reported) Entered as Reported by: TALAT VELASCO on 12/04/21 1055 Cephalexin (Cephalexin) 500 Mg Tablet, 500 MG PO BID Prescribed by: MARIO ALCAZAR on 12/07/21 1016 Flecainide Acetate (Flecainide Acetate) 50 Mg Tablet, 50 MG PO BID, (Reported) Entered as Reported by: TALAT VELASCO on 12/04/21 1055 Folic Acid (Folic Acid) 1 Mg Tablet, 1 MG PO DAILY, (Reported) Entered as Reported by: TALAT VELASCO on 12/04/21 1055 Lisinopril (Lisinopril) 20 Mg Tablet, 20 MG PO BID, (Reported) Entered as Reported by: RADHA RILEY on 03/17/18 1645 Review of Systems Review of Systems Constitutional: see HPI EENTM: see HPI Respiratory: see HPI Cardiovascular: see HPI Gastrointestinal: see HPI Genitourinary: see HPI Musculoskeletal: see HPI Skin: see HPI Psychiatric/Neurological: See HPI Hematologic/Lymphatic: See HPI Immunological/Allergic: see HPI All Other Systems Reviewed Negative Unless Noted: Yes Past Fsnbjqy-Nmbdbj-Jelzfj Hx Patient Social History Tobacco Use?: No Immunizations Up To Date First/Initial COVID19 Vaccinat: completed Second COVID19 Vaccination Yayo: completed and boosted Third COVID19 Vaccination Date: UNKNOWN Seasonal Allergies Seasonal Allergies: No Past Medical History Surgery/Hospitalization HX: Breast cancer, renal cancer, sick sinus syndrome with pacemaker, hypertension, hypercholesterolemia, diabetes Surgeries: Yes Appendectomy, Breast, Hysterectomy, Pacemaker, Renal Respiratory: Yes Sleep Apnea Currently Using CPAP: Yes Currently Using BIPAP: No Cardiac: Yes (pace maker) Atrial Fibrillation, Hypertension Neurological: No Genitourinary: No Gastrointestinal: Yes Chronic Constipation, Ulcer Musculoskeletal: Yes (recent falls) Endocrine: Yes HEENT: No Cancer: Yes Breast, Kidney Did You Recieve Any Treatments: Yes What Type of Treatment Did You: Surgical Intervention Psychosocial: Yes Depression Integumentary: No Blood Disorders: No Family Medical History Patient reports no known family medical history. Daughter of stroke at 54yo Physical Exam Vital Signs Vital Signs - First Documented 01/27/22 11:18 Temp 37.1 Pulse 68 Resp 16 B/P (MAP) 100/36 (57) Pulse Ox 97 O2 Delivery Room Air Capillary Refill : Height, Weight, BMI Height: 5'2.00" Weight: 141lbs. 0.0oz. [id number]; 27.00 BMI Method: General Appearance: No Apparent Distress, WD/WN, Anxious Eyes: Bilateral Eye Normal Inspection, Bilateral Eye PERRL HEENT: Normal ENT Inspection Neck: Full Range of Motion Respiratory: Lungs Clear, Normal Breath Sounds, No Accessory Muscle Use Gastrointestinal: Soft Back: No CVA Tenderness Neurologic/Psychiatric: Alert, Oriented x3 Focused Exam Sepsis Stage: Ruled Out Progress/Results/Core Measures Suspected Sepsis SIRS Temperature: Pulse: Respiratory Rate: Laboratory Tests 01/27/22 11:00: White Blood Count 7.1 Blood Pressure / Mean: Laboratory Tests 01/27/22 11:00: Creatinine 1.66H, Platelet Count 150, Total Bilirubin 0.5 Results/Orders Lab Results Laboratory Tests Test 01/27/22 11:00 01/27/22 12:50 Range/Units White Blood Count 7.1 4.3-11.0 10^3/uL Red Blood Count 3.61 L 3.80-5.11 10^6/uL Hemoglobin 10.3 L 11.5-16.0 g/dL Hematocrit 31 L 35-52 % Mean Corpuscular Volume 85 80-99 fL Mean Corpuscular Hemoglobin 29 25-34 pg Mean Corpuscular Hemoglobin Concent 34 32-36 g/dL Red Cell Distribution Width 14.9 H 10.0-14.5 % Platelet Count 150 130-400 10^3/uL Mean Platelet Volume 10.0 9.0-12.2 fL Immature Granulocyte % (Auto) 2 % Neutrophils (%) (Auto) 62 42-75 % Lymphocytes (%) (Auto) 18 12-44 % Monocytes (%) (Auto) 14 H 0-12 % Eosinophils (%) (Auto) 4 0-10 % Basophils (%) (Auto) 0 0-10 % Neutrophils # (Auto) 4.4 1.8-7.8 X 10^3 Lymphocytes # (Auto) 1.3 1.0-4.0 X 10^3 Monocytes # (Auto) 1.0 0.0-1.0 X 10^3 Eosinophils # (Auto) 0.3 0.0-0.3 10^3/uL Basophils # (Auto) 0.0 0.0-0.1 10^3/uL Immature Granulocyte # (Auto) 0.1 0.0-0.1 10^3/uL Sodium Level 129 L 135-145 MMOL/L Potassium Level 4.7 3.6-5.0 MMOL/L Chloride Level 97 L 98-107 MMOL/L Carbon Dioxide Level 21 21-32 MMOL/L Anion Gap 11 5-14 MMOL/L Blood Urea Nitrogen 31 H 7-18 MG/DL Creatinine 1.66 H 0.60-1.30 MG/DL Estimat Glomerular Filtration Rate 29 BUN/Creatinine Ratio 19 Glucose Level 115 H 70-105 MG/DL Calcium Level 9.0 8.5-10.1 MG/DL Corrected Calcium 9.4 8.5-10.1 MG/DL Total Bilirubin 0.5 0.1-1.0 MG/DL Aspartate Amino Transf (AST/SGOT) 25 5-34 U/L Alanine Aminotransferase (ALT/SGPT) 15 0-55 U/L Alkaline Phosphatase 87 40-136 U/L Troponin I < 0.30 <0.30 NG/ML Total Protein 6.2 L 6.4-8.2 GM/DL Albumin 3.5 3.2-4.5 GM/DL Urine Color YELLOW Urine Clarity SLT CLOUDY Urine pH 6.5 5-9 Urine Specific [place] <=1.005 1.016-1.022 Urine Protein NEGATIVE NEGATIVE Urine Glucose (UA) NEGATIVE NEGATIVE Urine Ketones NEGATIVE NEGATIVE Urine Nitrite NEGATIVE NEGATIVE Urine Bilirubin NEGATIVE NEGATIVE Urine Urobilinogen 0.2 < = 1.0 MG/DL Urine Leukocyte Esterase 3+ H NEGATIVE Urine RBC (Auto) NEGATIVE NEGATIVE Urine RBC RARE /HPF Urine WBC 5-10 H /HPF Urine Squamous Epithelial Cells 2-5 /HPF Urine Crystals NONE /LPF Urine Bacteria TRACE /HPF Urine Casts NONE /LPF Urine Mucus NEGATIVE /LPF Urine Culture Indicated YES My Orders Orders - MARYCRUZ PEDRAZA DO Ua Culture If Indicated (01/27/22 10:57) Cbc With Automated Diff (01/27/22 10:57) Comprehensive Metabolic Panel (01/27/22 10:57) Troponin I [place] (01/27/22 10:57) Ns Iv 1000 Ml (Sodium Chloride 0.9%) (01/27/22 12:00) Urine Culture (01/27/22 12:50) Ceftriaxone 1 Gm Pre-Mix (Rocephin 1 Gm (01/27/22 13:30) Medications Given in ED Current Medications Medications Dose Ordered Sig/Molly Route Start Time Stop Time Status Last Admin Dose Admin Ceftriaxone Sodium/Dextrose 50 ml @ 100 mls/hr ONCE ONCE IV 01/27/22 13:30 01/27/22 13:59 01/27/22 13:26 100 MLS/HR Vital Signs/I&O 01/27/22 11:18 Temp 37.1 Pulse 68 Resp 16 B/P (MAP) 100/36 (57) Pulse Ox 97 O2 Delivery Room Air Capillary Refill : Departure Communication (Admissions) IV fluids antibiotics given. Patient feels improved. Lab work otherwise reassuring. We will continue therapeutic and supportive care with PCP follow- up. Return precautions reviewed. Patient verbalizes understanding agreement discharge instructions prior to departure. Impression Primary Impression: Urinary tract infection Additional Impressions: Dehydration, mild Generalized weakness Disposition: HOME, SELF-CARE Condition: Stable Departure-Patient Inst. Decision time for Depature: 13:38 Referrals: NO,LOCAL PHYSICIAN (PCP/Family) Primary Care Physician Patient Instructions: Urinary Tract Infection, Adult ED, Generalized Weakness (DC) Add. Discharge Instructions: You were evaluated in the emergency department for generalized weakness fatigue and diagnosed with a urinary tract infection, dehydration. Please increase fluids and take antibiotics as directed. Follow-up with your PCP in 2 to 3 days for urine culture result. Return to the ED if new or worsening symptoms. All discharge instructions reviewed with patient and/or family. Voiced understanding. Scripts Cephalexin (Cephalexin) 500 Mg Tablet 500 MG PO TID, #21 TAB Prov: MARYCRUZ PEDRAZA DO 01/27/22 MARYCRUZ PEDRAZA DO January 27, 2022 10:52
[2022-01-27 11:27] LABS: HEMATOCRIT 31 % (35-52); HEMOGLOBIN 10.3 g/dL (11.5-16.0); MEAN CORPUSCULAR HEMOGLOBIN 29 pg (25-34); MEAN CORPUSCULAR HGB CONC 34 g/dL (32-36); MEAN CORPUSCULAR VOLUME 85 fL (80-99); PLATELET COUNT 150 10^3/uL (130-400); WHITE BLOOD COUNT 7.1 10^3/uL (4.3-11.0)
[2022-01-27 11:28] LABS: BASOPHILS % (AUTO) 0 % (0-10); EOSINOPHILS # (AUTO) 0.3 10^3/uL (0.0-0.3); EOSINOPHILS % (AUTO) 4 % (0-10); LYMPHOCYTES # (AUTO) 1.3 X 10^3 (1.0-4.0); LYMPHOCYTES % (AUTO) 18 % (12-44); MONOCYTES % (AUTO) 14 % (0-12); NEUTROPHILS # (AUTO) 4.4 X 10^3 (1.8-7.8); NEUTROPHILS % (AUTO) 62 % (42-75)
[2022-01-27 11:46] LABS: CARBON DIOXIDE 21 MMOL/L (21-32); CHLORIDE 97 MMOL/L (98-107); POTASSIUM 4.7 MMOL/L (3.6-5.0); SODIUM 129 MMOL/L (135-145)
[2022-01-27 11:47] LABS: ALANINE AMINOTRANSFERASE 15 U/L (0-55); ALKALINE PHOSPHATASE 87 U/L (40-136); BILIRUBIN,TOTAL 0.5 MG/DL (0.1-1.0); BUN/CREATININE RATIO 19; CREATININE SERUM 1.66 MG/DL (0.60-1.30); GFR ESTIMATED 29; GLUCOSE 115 MG/DL (70-105); TOTAL PROTEIN 6.2 GM/DL (6.4-8.2)
[2022-01-27 11:48] LABS: ALBUMIN 3.5 GM/DL (3.2-4.5)
[2022-01-27] MEDS ORDERED: NS IV 1000 ML 1,000 ML IV SCH (12:00)
[2022-01-27 12:59] LABS: BILIRUBIN,URINE NEGATIVE (NEGATIVE); COLOR,URINE YELLOW; GLUCOSE, URINE (UA) NEGATIVE (NEGATIVE); KETONES,URINE NEGATIVE (NEGATIVE); LEUKOCYTE ESTERASE ,URINE 3+ (NEGATIVE); NITRITE,URINE NEGATIVE (NEGATIVE); PH,URINE 6.5 (5-9); PROTEIN,URINE NEGATIVE (NEGATIVE)
[2022-01-27 13:10] LABS: BACTERIA,URINE TRACE /HPF; CLARITY,URINE SLT CLOUDY; RBC,URINE RARE /HPF
[2022-01-27] MEDS ORDERED: cefTRIAXone 1 GM PRE-MIX 50 ML IV ONE (13:30)
[2022-01-27] MEDS ORDERED: CEPH500T PO (13:40)
[2022-01-27 14:10] VITALS: BP 112/63
== END 2022-01-27 14:10 | disposition home or self-care (01) ==
LOC: EDUNIT# 10:32 → ER FS 10:33
DX: E86.0 Dehydration (principal); N39.0 Urinary tract infection, site not specified; G47.30 Sleep apnea, unspecified; Z99.89 Dependence on other enabling machines and devices; Z85.528 Personal history of other malignant neoplasm of kidney; Z90.49 Acquired absence of other specified parts of digestive tract; Z90.710 Acquired absence of both cervix and uterus
CPT/HCPCS: 36415; 80053; 81000; 84484; 85025; 87077; 87088

== ENCOUNTER 2022-02-13 04:40 | Observation (INO) | payer MEDICARE ==
[~2022-02-13] VITALS: Ht 157.5 cm; Wt 100.0 kg
[2022-02-13] MEDS ORDERED: ACETAMINOPHEN 500 MG TAB (TYLENOL) PO ONE (04:45)
--- NOTE | 2022-02-13 04:45 | ED General ---
General Stated Complaint: SOB Source of Information: Patient Exam Limitations: No Limitations (MARYCRUZ PEDRAZA DO) History of Present Illness Date Seen by Provider: Feb 13, 2022 Time Seen by Provider: 04:40 Initial Comments Patient is an 89-year-old female presents with intermittent left lower right flank pain starting several days ago. Pain is described as dull moderate to severe and is worse with palpation and movement. Pain is improved with Tylenol. Patient states she had severe pain this morning upon getting up and use the bathroom and felt as though her legs "gave out." At times she feels short of breath secondary to the pain. She denies fever chills, nausea vomiting, sweats, diarrhea. She reports chronic constipation. No urinary frequency urgency dysuria hematuria. History of renal cancer with right nephrectomy and partial left nephrectomy. No other acute symptoms or complaints Timing/Duration: 4-5 Days Severity: Moderate Modifying Factors: improves with Other Associated Systoms: Other (MARYCRUZ PEDRAZA DO) Allergies and Home Medications Allergies Coded Allergies: Sulfa (Sulfonamide Antibiotics) (Verified Allergy, Unknown, 03/17/18) nitrofurantoin (Verified Allergy, Unknown, 03/17/18) Patient Home Medication List Home Medication List Reviewed: Yes (MARYCRUZ PEDRAZA DO) Amlodipine Besylate (Amlodipine Besylate) 2.5 Mg Tablet, 2.5 MG PO DAILY, (Reported) Entered as Reported by: TALAT VELASCO on 12/04/21 1055 Aspirin (Aspirin EC) 81 Mg Tablet.dr, 81 MG PO HS, (Reported) Entered as Reported by: TALAT VELASCO on 12/04/21 1055 Atorvastatin Calcium (Atorvastatin Calcium) 20 Mg Tablet, 20 MG PO HS, (Reported) Entered as Reported by: TALAT VELASCO on 12/04/21 1055 Azithromycin (Azithromycin) 250 Mg Tablet, 250 MG PO DAILY Prescribed by: MARIO MORRISON on 12/07/21 1016 Carvedilol (Carvedilol) 25 Mg Tablet, 25 MG PO BID, (Reported) Entered as Reported by: TALAT VELASCO on 12/04/21 1055 Cephalexin (Cephalexin) 500 Mg Tablet, 500 MG PO BID Prescribed by: MARIO MORRISON on 12/07/21 1016 Cephalexin (Cephalexin) 500 Mg Tablet, 500 MG PO TID Prescribed by: MARYCRUZ PEDRAZA on 01/27/22 1340 Flecainide Acetate (Flecainide Acetate) 50 Mg Tablet, 50 MG PO BID, (Reported) Entered as Reported by: TALAT VELASCO on 12/04/21 1055 Folic Acid (Folic Acid) 1 Mg Tablet, 1 MG PO DAILY, (Reported) Entered as Reported by: TALAT VELASCO on 12/04/21 1055 Lidocaine (Lidocaine 5% Patch) 5 % Adh..patch, 1 EACH TP Q12H PRN for Neuropathic pain Prescribed by: NOLAN ROLLINS on 02/13/22 0755 Lisinopril (Lisinopril) 20 Mg Tablet, 20 MG PO BID, (Reported) Entered as Reported by: RADHA RILEY on 03/17/18 1645 Review of Systems Review of Systems Constitutional: see HPI EENTM: see HPI Respiratory: see HPI Cardiovascular: see HPI Genitourinary: see HPI Musculoskeletal: see HPI Skin: see HPI Psychiatric/Neurological: See HPI Hematologic/Lymphatic: See HPI Immunological/Allergic: see HPI (MARYCRUZ PEDRAZA DO) Past Gcwtvxq-Bmgifz-Jamepg Hx Patient Social History Tobacco Use?: No (MARYCRUZ PEDRAZA DO) Immunizations Up To Date First/Initial COVID19 Vaccinat: completed Second COVID19 Vaccination Yayo: completed and boosted Third COVID19 Vaccination Date: UNKNOWN (MARYCRUZ PEDRAZA DO) Seasonal Allergies Seasonal Allergies: No (MARYCRUZ PEDRAZA DO) Past Medical History Surgery/Hospitalization HX: DM, HTN Surgeries: Yes Appendectomy, Breast, Hysterectomy, Pacemaker, Renal Respiratory: Yes Sleep Apnea Currently Using CPAP: Yes Currently Using BIPAP: No Cardiac: Yes (pace maker) Atrial Fibrillation, Hypertension Neurological: No Genitourinary: No Gastrointestinal: Yes Chronic Constipation, Ulcer Musculoskeletal: Yes (recent falls) Endocrine: Yes HEENT: No Cancer: Yes Breast, Kidney Did You Recieve Any Treatments: Yes What Type of Treatment Did You: Surgical Intervention Psychosocial: Yes Depression Integumentary: No Blood Disorders: No (MARYCRUZ PEDRAZA DO) Family Medical History Patient reports no known family medical history. Daughter of stroke at 54yo (MARYCRUZ PEDRAZA DO) Physical Exam Vital Signs Vital Signs - First Documented 02/13/22 05:02 Temp 36.1 Pulse 84 Resp 16 B/P (MAP) 124/74 (91) Pulse Ox 98 O2 Delivery Room Air (NOLAN ROLLINS MD) Vital Signs Capillary Refill : (MARYCRUZ PEDRAZA DO) Height, Weight, BMI Height: 5'2.00" Weight: 141lbs. 0.0oz. [id number]; 27.00 BMI Method: General Appearance: No Apparent Distress, WD/WN Eyes: Bilateral Eye Normal Inspection, Bilateral Eye PERRL, Bilateral Eye EOMI HEENT: PERRL/EOMI, Normal ENT Inspection, Pharynx Normal Neck: Non Tender, Supple Respiratory: Lungs Clear Cardiovascular: Regular Rate, Rhythm Gastrointestinal: Non Tender, Soft; No Tenderness; Other (Nonpulsatile.) Extremity: Non Tender, No Calf Tenderness Neurologic/Psychiatric: Alert, Oriented x3, No Motor/Sensory Deficits (MARYCRUZ PEDRAZA DO) Focused Exam Sepsis Stage: Ruled Out (MARYCRUZ PEDRAZA DO) Progress/Results/Core Measures Suspected Sepsis SIRS Temperature: Pulse: Respiratory Rate: Laboratory Tests 02/13/22 04:54: White Blood Count 8.8 Blood Pressure / Mean: Laboratory Tests 02/13/22 04:54: Creatinine 1.29, Platelet Count 215, Total Bilirubin 0.5 (MARYCRUZ PEDRAZA DO) Results/Orders Lab Results Laboratory Tests Test 02/13/22 04:54 02/13/22 06:37 Range/Units White Blood Count 8.8 4.3-11.0 10^3/uL Red Blood Count 3.36 L 3.80-5.11 10^6/uL Hemoglobin 9.6 L 11.5-16.0 g/dL Hematocrit 29 L 35-52 % Mean Corpuscular Volume 87 80-99 fL Mean Corpuscular Hemoglobin 29 25-34 pg Mean Corpuscular Hemoglobin Concent 33 32-36 g/dL Red Cell Distribution Width 14.8 H 10.0-14.5 % Platelet Count 215 130-400 10^3/uL Mean Platelet Volume 9.9 9.0-12.2 fL Immature Granulocyte % (Auto) 1 % Neutrophils (%) (Auto) 56 42-75 % Lymphocytes (%) (Auto) 25 12-44 % Monocytes (%) (Auto) 13 H 0-12 % Eosinophils (%) (Auto) 4 0-10 % Basophils (%) (Auto) 1 0-10 % Neutrophils # (Auto) 5.0 1.8-7.8 10^3/uL Lymphocytes # (Auto) 2.2 1.0-4.0 10^3/uL Monocytes # (Auto) 1.1 H 0.0-1.0 10^3/uL Eosinophils # (Auto) 0.3 0.0-0.3 10^3/uL Basophils # (Auto) 0.1 0.0-0.1 10^3/uL Immature Granulocyte # (Auto) 0.1 0.0-0.1 10^3/uL D-Dimer 2.58 H 0.00-0.49 UG/ML Sodium Level 137 135-145 MMOL/L Potassium Level 4.1 3.6-5.0 MMOL/L Chloride Level 104 98-107 MMOL/L Carbon Dioxide Level 21 21-32 MMOL/L Anion Gap 12 5-14 MMOL/L Blood Urea Nitrogen 22 H 7-18 MG/DL Creatinine 1.29 0.60-1.30 MG/DL Estimat Glomerular Filtration Rate 40 BUN/Creatinine Ratio 17 Glucose Level 133 H 70-105 MG/DL Calcium Level 9.4 8.5-10.1 MG/DL Corrected Calcium 9.8 8.5-10.1 MG/DL Total Bilirubin 0.5 0.1-1.0 MG/DL Aspartate Amino Transf (AST/SGOT) 17 5-34 U/L Alanine Aminotransferase (ALT/SGPT) 11 0-55 U/L Alkaline Phosphatase 173 H 40-136 U/L Total Protein 6.9 6.4-8.2 GM/DL Albumin 3.5 3.2-4.5 GM/DL Urine Color YELLOW Urine Clarity SL CLOUDY Urine pH 6.0 5-9 Urine Specific [place] 1.010 L 1.016-1.022 Urine Protein NEGATIVE NEGATIVE Urine Glucose (UA) NEGATIVE NEGATIVE Urine Ketones NEGATIVE NEGATIVE Urine Nitrite NEGATIVE NEGATIVE Urine Bilirubin NEGATIVE NEGATIVE Urine Urobilinogen 0.2 < = 1.0 MG/DL Urine Leukocyte Esterase 2+ H NEGATIVE Urine RBC (Auto) NEGATIVE NEGATIVE Urine RBC NONE /HPF Urine WBC 10-25 H /HPF Urine Squamous Epithelial Cells 2-5 /HPF Urine Renal Epithelial Cells 0-2 /HPF Urine Crystals NONE /LPF Urine Bacteria FEW H /HPF Urine Casts NONE /LPF Urine Mucus NEGATIVE /LPF Urine Culture Indicated YES (NOLAN ROLLINS MD) My Orders Orders - NOLAN ROLLINS MD Enoxaparin Injection (Lovenox Injection) (02/13/22 08:15) Ed Admission (Communication) (02/13/22 08:27) Ekg Tracing (02/13/22 08:35) Probnp Fs (02/13/22 08:35) Troponin I Fs (02/13/22 08:35) (NOLAN ROLLINS MD) Medications Given in ED Current Medications Medications Dose Ordered Sig/Molly Route Start Time Stop Time Status Last Admin Dose Admin Acetaminophen 1,000 mg ONCE ONCE PO 02/13/22 04:45 02/13/22 04:46 DC 02/13/22 04:50 1,000 MG Enoxaparin Sodium 100 mg ONCE ONCE SC 02/13/22 08:15 02/13/22 08:17 DC 02/13/22 08:30 100 MG Iohexol 80 ml ONCE ONCE IV 02/13/22 07:15 02/13/22 07:16 DC 02/13/22 07:42 80 ML Sodium Chloride 10 ml NEEDED PRN IV 02/13/22 07:15 02/13/22 07:42 10 ML Sodium Chloride 100 ml ONCE ONCE IV 02/13/22 07:15 02/13/22 07:16 DC 02/13/22 07:42 100 ML (NOLAN ROLLINS MD) Vital Signs/I&O 02/13/22 02/13/22 05:02 08:49 Temp 36.1 36.4 Pulse 84 63 Resp 16 18 B/P (MAP) 124/74 (91) 148/47 Pulse Ox 98 94 O2 Delivery Room Air Room Air (NOLAN ROLLINS MD) Vital Signs/I&O Capillary Refill : (MARYCRUZ PEDRAZA DO) Progress Note : Progress Note Received patient in signout pending CTA chest/abdomen/pelvis. D-dimer was elevated so ruling out dissection. I did a repeat exam on the patient, she has normal and equal distal pulses, normal capillary refill, no neurodeficits. She says since receiving the Tylenol, her pain has completely resolved. GFR was 40, and I discussed with the patient there is small potential for lowering of the GFR with contrast. She is agreeable to this. We will give IV fluids with it. Of note, the patient's urinalysis came back with a few whites, leukocyte Estra ce, and a little bit of bacteria. The patient says she is not having any dysuria, urinary frequency, lower abdominal tenderness, or any symptoms related to this. We will forego treatment at this time for urinary tract infection given this is likely asymptomatic bacteriuria. CT came back with R lower lung PE. Discussed the case personally with the radiologist. Gave the patient her first dose of Lovenox. PESI score due to age is 89 making her moderate risk. Discussed the case with Dr. Morrison who admit the patient under observation status for further evaluation and management. (NOLAN ROLLINS MD) ECG Initial ECG Impression Date: Feb 13, 2022 Initial ECG Impression Time: 08:47 Initial ECG Rate: 62 Initial ECG Rhythm: Normal Sinus (Atrially paced rhythm) Comment Narrow QRS, normal axis, no significant ST changes or T wave abnormalities, atrially paced (NOLAN ROLLINS MD) Departure Communication (Admissions) CT abdomen pelvis: Fecal stasis of ascending colon. Elevated diet D-dimer with concern for possible dissection. CT angio pending. Care transitioned to oncoming ERP at 700 (MARYCRUZ PEDRAZA DO) Impression Primary Impression: Right flank pain Additional Impression: Pulmonary embolism Qualified Codes: I26.99 - Other pulmonary embolism without acute cor pulmonale Disposition: 30 STILL A PATIENT Condition: Stable Admissions Decision to Admit Reason: Admit from ER (General) Decision to Admit/Date: Feb 13, 2022 Time/Decision to Admit Time: 08:20 (NOLAN ROLLINS MD) Transfer Method of Transfer: EMS (NOLAN ROLLINS MD) Departure-Patient Inst. Referrals: NO,LOCAL PHYSICIAN (PCP/Family) Primary Care Physician Patient Instructions: Flank Pain ED Add. Discharge Instructions: Take 1000 mg of Tylenol every 6 hours as needed for pain. You can also try things such as a heating pad or ice packs. I sent a prescription for lidocaine patch that you can put on the area that hurts the most. He can leave it on for 12 hours at a time before having to change it. Do not use a heating pad if you are using the lidocaine patch at the same time because you could get burned. Follow-up with your regular doctor if things are not improving in the next few days. Scripts Lidocaine (Lidocaine 5% Patch) 5 % Adh..patch 1 EACH TP Q12H PRN for Neuropathic pain MDD 2 for 7 Days, #14 PATCH 2 patches max for 12 hours, then 12 hours patch-free period. Prov: NOLAN ROLLINS MD 02/13/22 MARYCRUZ PEDRAZA DO Feb 13, 2022 04:45 NOLAN ROLLINS MD Feb 13, 2022 07:55
[2022-02-13 05:22] LABS: BASOPHILS # (AUTO) 0.1 10^3/uL (0.0-0.1); BASOPHILS % (AUTO) 1 % (0-10); EOSINOPHILS # (AUTO) 0.3 10^3/uL (0.0-0.3); EOSINOPHILS % (AUTO) 4 % (0-10); HEMATOCRIT 29 % (35-52); HEMOGLOBIN 9.6 g/dL (11.5-16.0); LYMPHOCYTES # (AUTO) 2.2 10^3/uL (1.0-4.0); LYMPHOCYTES % (AUTO) 25 % (12-44); MEAN CORPUSCULAR HEMOGLOBIN 29 pg (25-34); MEAN CORPUSCULAR HGB CONC 33 g/dL (32-36); MEAN CORPUSCULAR VOLUME 87 fL (80-99); MEAN PLATELET VOLUME 9.9 fL (9.0-12.2); MONOCYTES # (AUTO) 1.1 10^3/uL (0.0-1.0); MONOCYTES % (AUTO) 13 % (0-12); NEUTROPHILS % (AUTO) 56 % (42-75); PLATELET COUNT 215 10^3/uL (130-400); WHITE BLOOD COUNT 8.8 10^3/uL (4.3-11.0)
--- NOTE | 2022-02-13 05:34 | Diagnostic Imaging Report ---
PROCEDURE: CT abdomen and pelvis without contrast. TECHNIQUE: Multiple contiguous axial images were obtained through the abdomen and pelvis without the use of intravenous contrast. Auto Exposure Controls were utilized during the CT exam to meet ALARA standards for radiation dose reduction. INDICATION: Left flank pain Lung bases are clear. Liver appears normal. There is a small calculus in the gallbladder. Pancreas is unremarkable. Spleen is not enlarged. There is a small sliding hiatal hernia. The right kidney surgically absent. There is a cluster stones in the lower pole of left kidney and a ventral calyx. There is no hydronephrosis. Ureters not dilated. Urinary bladder is normal. Uterus is surgically absent. Small bowel is not dilated. There is fecal retention in the ascending colon. There is diverticulosis of the colon without evidence of diverticulitis. IMPRESSION: Fecal stasis. Uncomplicated diverticulosis of the colon. Left nephrolithiasis without evidence of obstruction. Dictated by: Dictated on workstation # [id number]
[2022-02-13 05:42] LABS: CREATININE SERUM 1.29 MG/DL (0.60-1.30); POTASSIUM 4.1 MMOL/L (3.6-5.0)
[2022-02-13 05:43] LABS: ALBUMIN 3.5 GM/DL (3.2-4.5); BILIRUBIN,TOTAL 0.5 MG/DL (0.1-1.0); CALCIUM 9.4 MG/DL (8.5-10.1); TOTAL PROTEIN 6.9 GM/DL (6.4-8.2)
[2022-02-13] MEDS ORDERED: NS 100 ML (IVPB) BAG IV ONE (07:15)
[2022-02-13] MEDS ORDERED: NS IV 1000 ML 1,000 ML IV SCH (07:15)
[2022-02-13] MEDS ORDERED: HOLD METFORMIN - RECEIVED CONTRAST 20 ML VIAL IV SCH (07:15)
[2022-02-13] MEDS ORDERED: CATHETER FLUSH 10 ML SYR IV PRN (07:15)
[2022-02-13] MEDS ORDERED: IOHEXOL 350 MG/ML 100 ML (OMNIPAQUE 350) VIAL IV ONE (07:15)
[2022-02-13 07:30] LABS: BILIRUBIN,URINE NEGATIVE (NEGATIVE); CLARITY,URINE SL CLOUDY; COLOR,URINE YELLOW; GLUCOSE, URINE (UA) NEGATIVE (NEGATIVE); KETONES,URINE NEGATIVE (NEGATIVE); LEUKOCYTE ESTERASE ,URINE 2+ (NEGATIVE); NITRITE,URINE NEGATIVE (NEGATIVE); PROTEIN,URINE NEGATIVE (NEGATIVE)
[2022-02-13 07:44] LABS: BACTERIA,URINE FEW /HPF; RENAL EPITHELIAL CELLS,URINE 0-2 /HPF
[2022-02-13] MEDS ORDERED: LIDO700A45 TP (07:55)
[2022-02-13] MEDS ORDERED: ENOXAPARIN 100 MG/1 ML (LOVENOX) SYR SC ONE (08:15)
--- NOTE | 2022-02-13 08:32 | Diagnostic Imaging Report ---
PROCEDURE: CT angiography of the abdomen and chest with and without contrast. TECHNIQUE: After intravenous administration of contrast, thin section axial CT angiography of the abdomen and chest were obtained. 3D MIP reformats were provided. Auto Exposure Controls were utilized during the CT exam to meet ALARA standards for radiation dose reduction. INDICATION: Right flank pain, back pain, elevated D-dimer. History of renal malignancy with a partial left and complete right nephrectomy. Most recent chest CT nonenhanced 03/30/2018. Most recent abdominal pelvic imaging nonenhanced earlier this same date. CHEST: There are right lower lobe pulmonary arterial filling defects consistent with a pulmonary arterial embolus. The left-sided pulmonary arterial branches appeared well opacified and patent. There were no findings of right heart strain the PE burden in this patient is mild. There is no intracardiac chamber mass or thrombus. The atherosclerotic aorta is patent and nonaneurysmal and nonacute. No findings of mural hemorrhage, dissection or rupture. No findings of pneumonia or pulmonary edema. No effusion or pneumothorax. No acute chest wall abnormality. There is no axillary, hilar or mediastinal lymphadenopathy. There is a small hiatal hernia. ABDOMEN: The atherosclerotic abdominal aorta is patent and nonaneurysmal and nonacute. The celiac, the superior mesenteric and the takeoff of the inferior mesenterics are all widely patent. The left main renal artery is patent as is a smaller lower pole accessory branch. 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 There were no findings to suggest neoplastic recurrence. There is no abdominal mesenteric or retroperitoneal lymphadenopathy. During the arterial phase hepatic, splenic, adrenal and pancreatic parenchymal enhancement appeared unremarkable. No identifiable mass effect. No organomegaly. No ascites. No abscess, hematoma or acute fluid collection. There is no focal inflammatory process. There is mildly elevated colonic fecal load without overt obstruction. No bowel wall thickening. There is degenerative changes to the bony structures but no acute osseous pathology. IMPRESSION: CHEST: Exam confirms the presence of a relatively mild burden of right lower lobe pulmonary arterial embolic disease without features of right heart strain or saddle embolus. The atherosclerotic aorta is patent and nonaneurysmal and nonacute. No dissection or mural hematoma. No findings of pneumonia, edema or thoracic metastatic disease. ABDOMEN: Right nephrectomy. Postsurgical changes to the unobstructed left kidney without evidence for neoplastic recurrence. Atherosclerotic aorta without stenosis, dissection, mural hematoma, arterial thrombus or end organ ischemia. No findings of abdominal metastatic disease. Small hiatal hernia noted. Results discussed with the Emergency Room physician. Dictated by: Dictated on workstation # [id number]
[2022-02-13] MEDS ORDERED: polyethylene glycoL POWDER 17 GM (MIRALAX) PACK PO PRN (10:30)
[2022-02-13] MEDS ORDERED: MELATONIN 3 MG TABLET PO PRN (10:30)
[2022-02-13] MEDS ORDERED: ANTACID SUSP 30 ML UDC (MYLANTA) PO PRN (10:30)
[2022-02-13] MEDS ORDERED: ONDANSETRON 4 MG/2 ML (SDV) Z0FRAN IV PRN (10:30)
[2022-02-13] MEDS ORDERED: PATIENT MAY USE OWN MEDS, ALL PO SCH (10:30)
[2022-02-13] MEDS ORDERED: ACETAMINOPHEN 325 MG TABLET PO PRN (10:30)
[2022-02-13 10:36] VITALS: BP 179/75
[2022-02-13] MEDS: APIXABAN 5 MG (ELIQUIS) TABLET PO SCH ×2 (11:49→20:06)
--- NOTE | 2022-02-13 12:00 | Physical Therapy Evaluation ---
PT Evaluation-General Medical Diagnosis Admission Date Feb 13, 2022 at 10:10 Medical Diagnosis: PE Onset Date: Feb 13, 2022 Therapy Diagnosis Therapy Diagnosis: debility Height/Weight Height (Feet): 5 Height (Inches): 2.00 Weight (Pounds): 141 Weight (Ounces): 0.0 Precautions Precautions/Isolations: Fall Prevention, Standard Precautions Referral Physician: Prince Reason for Referral: Evaluation/Treatment Medical History Pertinent Medical History: Atrial Fib, DM, HTN Additional Medical History renal cancer Current History ER secondary to right flank pain and SOA Reviewed History: Yes Social History Home: [facility] Current Living Status: Alone Entry Into Home: Stairs With Railing PT Steps Into Home: 5 Prior Prior Level of Function SCALE: Activities may be completed with or without assistive devices. 9-Wnrkctdcch-zcvkltn completes the activity by him/herself with no assistance from a helper. 5-Set-up or Clean-up Assistance-helper sets up or cleans up; patient completes activity. [place] assists only prior to or following the activity. 4-Supervision or Touching Assistance-helper provides verbal cues and/or touching/steadying and/or contact guard assistance as patient completes activity. Assistance may be provided throughout the activity or intermittently. 3-Partial/Moderate Assistance-helper does LESS THAN HALF the effort. [place] lifts, holds or supports trunk or limbs, but provides less than half the effort. 2-Substantial/Maximal Assistance-helper does MORE THAN HALF the effort. [place] lifts or holds trunk or limbs and provides more than half the effort. 7-Ukmsqvloj-nonfbj does ALL the effort. Patient does none of the effort to complete the activity. Or, the assistance of 2 or more helpers is required for the patient to complete the activity. If activity was not attempted, code reason: 7-Patient Refused. 9-Not Applicable-not attempted and the patient did not perform the activity before the current illness, exacerbation or injury. 10-Not Attempted due to Environmental Limitations-(lack of equipment, weather restraints, etc.). 88-Not Attempted due to Medical Conditions or Safety Concerns. Bed Mobility: 6 Transfers (B,C,W/C): 6 Gait: 6 Stairs: 6 Indoor Mobility (Ambulation): Independent Stairs: Independent Prior Devices Use: None PT Evaluation-Current Subjective Patient very agreeable to participate with PT. Objective Patient Orientation: Normal For Age ROM/Strength ROM Lower Extremities bilateral LE WFL Strength Lower Extremities 4/5 grossly bilateral LE Integumentary/Posture Bowel Incontinence: No Bladder Incontinence: No Posture WFL Neuromuscular (Tone, Coordination, Reflexes) grossly intact Sensory Vision: Functional Hearing: Functional Transfers Roll Left to Right (QC): 6 Lying to Sitting/Side of Bed(Q: 6 Sit to Stand (QC): 6 Chair/Xvh-ht-Cxfsc Xfer(QC): 6 Toilet Transfer (QC): 6 Gait Mode of Locomotion: Walk Anticipated Mode of Locomotion: Walk Walk 10 feet (QC): 6 Walk 50 ft with 2 Turns(QC): 6 Walk 150 ft (QC): 6 Distance: 500' Gait Assistive Device: None Comments/Gait Description safe and functional with no deviation Balance Sitting Static: Normal Sitting Dynamic: Normal Standing Static: Normal Standing Dynamic: Normal Assessment/Needs 89 y.o. female, is currently at independent [facility] with all gross motor skills and does not require skilled PT intervention. Rehab Potential: Fair PT Plan Treatment/Plan Treatment Plan: Discontinue PT, goals met Treatment Duration: Feb 13, 2022 Frequency: 1 time per week Estimated Hrs Per Day: .25 hour per day Patient and/or Family Agrees t: Yes Time/GCodes Time In: 1132 Time Out: 1145 Total Billed Treatment Time: 13 Total Billed Treatment 1 visit EVLowC 13 min MERCEDES CLAYTON PT Feb 13, 2022 12:00
[2022-02-13] MEDS ORDERED: APIX5TAB PO (13:23)
--- NOTE | 2022-02-13 13:31 | Occupational Therapy Eval ---
OT Evaluation-General/PLF Medical Diagnosis Admission Date Feb 13, 2022 at 10:10 Medical Diagnosis: PE Onset Date: Feb 13, 2022 Therapy Diagnosis Therapy Diagnosis: n/a Height/Weight Height (Feet): 5 Height (Inches): 2.00 Weight (Pounds): 141 Weight (Ounces): 0.0 Precautions Precautions/Isolations: Standard Precautions Referral Physician: Prince Referral Reason: Evaluation/Treatment Medical History Pertinent Medical History: Atrial Fib, DM, HTN Current History Pt presents to hospital with c/o R flank pain. Found to have PE. Per patient, she lives alone in a multilevel home. She states she does not use the upstairs and all needs are met on main level. She was indep with adls and iadls prior to admission. She uses a cane when out in the community and no AD at home. Reviewed History: Yes Social History Home: Multilevel Current Living Status: Alone Entry Into Home: Stairs With Railing Steps Into Home: 5 ADL-Prior Level of Function SCALE: Activities may be completed with or without assistive devices. 9-Vsxrfhvhgf-tbgkpfl completes the activity by him/herself with no assistance from a helper. 5-Set-up or Clean-up Assistance-helper sets up or cleans up; patient completes activity. [place] assists only prior to or following the activity. 4-Supervision or Touching Assistance-helper provides verbal cues and/or touching/steadying and/or contact guard assistance as patient completes activity. Assistance may be provided throughout the activity or intermittently. 3-Partial/Moderate Assistance-helper does LESS THAN HALF the effort. [place] lifts, holds or supports trunk or limbs, but provides less than half the effort. 2-Substantial/Maximal Assistance-helper does MORE THAN HALF the effort. [place] lifts or holds trunk or limbs and provides more than half the effort. 8-Iexfezgty-kfivnz does ALL the effort. Patient does none of the effort to complete the activity. Or, the assistance of 2 or more helpers is required for the patient to complete the activity. If activity was not attempted, code reason: 7-Patient Refused. 9-Not Applicable-not attempted and the patient did not perform the activity before the current illness, exacerbation or injury. 10-Not Attempted due to Environmental Limitations-(lack of equipment, weather restraints, etc.). 88-Not Attempted due to Medical Conditions or Safety Concerns. Self Care: Independent Functional Cognition: Independent DME/Equipment: Grab Bars, Shower Drive Self: Yes OT Current Status Subjective Pt denies pain, reports feeling much better than when she arrived. Appearance Pt returned to sitting in recliner, all needs within reach. Mental Status/Objective Patient Orientation: Person, Place, Situation Attachments: IV Current Glasses/Contacts: Yes Hand Dominance: Right Upper Extremity ROM RUE WNL L shoulder impaired to ~140 degrees AROM, ~160 degrees PROM (pt states this is baseline) Upper Extremity Strength RUE: 4/5 L shoulder: 3-/5 L elbow/wrist/talent acquisition project manager: 4/5 ADL-Treatment Eating (QC): 6 (per patient report) Oral Hygiene (QC): 6 On/Off Footwear (QC): 6 Toileting Hygiene (QC): 6 Pt demonstrates ability to don/doff bilateral socks without effort. She stood, ambulated to/from bathroom and completed all toileting tasks independently, no AD. Pt is currently at independent PLOF with all adls and functional transfers a nd does not require skilled OT intervention at this time. Education OT Patient Education: Purpose of tx/functional activities Teaching Recipient: Patient Teaching Methods: Discussion Response to Teaching: Verbalize Understanding, Return Demonstration OT Retirement Goals Retirement Goals 1=Demonstrate adherence to instructed precautions during ADL tasks. 2=Patient will verbalize/demonstrate understanding of assistive devices/modifications for ADL. 3=Patient will improve strength/tolerance for activity to enable patient to perform ADL's. OT Education/Plan Problem List/Assessment Assessment: No Skilled OT Needs ID'd Discharge Recommendations Plan/Recommendations: Discontinue OT Therapy Discharge Recommendati: Home & Family Treatment Plan/Plan of Care Treatment,Training & Education: Yes Patient would benefit from OT for education, treatment and training to promote independence in ADL's, mobility, safety and/or upper extremity function for ADL's. Plan of Care: ADL Retraining, UE Funct Exercise/Act Treatment Duration: Feb 13, 2022 Frequency: 1 time per week Estimated Hrs Per Day: .25 hour per day Agreement: Yes Time/GCodes Start Time: 11:50 Stop Time: 12:00 Total Time Billed (hr/min): 10 Billed Treatment Time 1 visit Ynes James OT Feb 13, 2022 13:31
--- NOTE | 2022-02-13 14:50 | History & Physical-Hospitalist ---
History of Present Illness HPI/Chief Complaint Patient is an 89-year-old female with past medical history of hypertension, uyu-zbannzl-lwjdswtrv diabetes, renal cell carcinoma, atrial fibrillation who presented to the emergency department due to abdominal pain. She reports her pains been going on for few days and as she only has 1 kidney from a previous nephrectomy she was concerned there was something going on with her kidneys. Her pain worsened this morning as well and she thought her legs were getting give out she also felt short of breath but thought it was due to the pain. CTA of her chest, abdomen, and pelvis were done to evaluate for abdom inal pathology and rule out dissection. She was found to have nephrolithiasis in her remaining kidney and an incidental right lower lobe PA with moderate clot burden. She was on room air, was not tachycardic, and has no evidence of heart strain on imaging but given her age and new anticoagulation start was offered observation. She reports feeling better during my exam and has no complaints. Source: patient Date Seen 02/13/22 Time Seen by a Provider: 13:45 Attending Physician No,Local Physician PCP Admitting Physician: Mario Alcazar MD Attending Physician: Mario Alcazar MD Referring Physician Date of Admission Feb 13, 2022 at 10:10 Home Medications & Allergies Home Medications Reviewed patient Home Medication Reconciliation performed by pharmacy medication reconciliations armored service technician and/or nursing. Patients Allergies have been reviewed. Allergies Allergies Coded Allergies Sulfa (Sulfonamide Antibiotics) (Verified Allergy, Unknown, 03/17/18) nitrofurantoin (Verified Allergy, Unknown, 03/17/18) Past Uwudxgz-Qdsvxd-Resryd Hx Patient Social History Employed/Student: retired Tobacco Use?: No Use of E-Cig and/or Vaping dev: No Substance use?: No Alcohol Use?: No Pt feels they are or have been: No Immunizations Up To Date Date of Influenza Vaccine: May 30, 2021 First/Initial COVID19 Vaccinat: completed Second COVID19 Vaccination Yayo: completed and boosted Tetanus Booster (TDap): Unknown Hepatitis A: No Hepatitis B: No Date of Pneumonia Vaccine: Dec 16, 2017 Seasonal Allergies Seasonal Allergies: No Current Status status: No Advance Directives: Yes Advance Directive Location: Home Communicates: Verbally Primary Language: [place] Preferred Spoken Language: [place] Is interpretation needed?: No Sensory deficits: Vision impairment Implanted or Applied Medical D: Other Past Medical History Surgeries: Appendectomy, Breast, Hysterectomy, Pacemaker, Renal Sleep Apnea Currently Using CPAP: Yes Currently Using BIPAP: No Atrial Fibrillation, Hypertension Chronic Constipation, Ulcer Breast, Kidney Did You Recieve Any Treatments: Yes What Type of Treatment Did You: Surgical Intervention Depression Blood Disorders: No Family Medical History Reviewed Nursing Family Hx Patient reports no known family medical history. Cancer (dad- colon caner) Daughter of stroke at 54yo Review of Systems Constitutional: No chills, No fever EENTM: no symptoms reported Respiratory: No cough, No dyspnea on exertion, No hemoptysis, No orthopnea; short of breath Cardiovascular: No chest pain, No edema, No Hx of Intervention, No palpitations Gastrointestinal: abdominal pain; No nausea, No vomiting Genitourinary: no symptoms reported Musculoskeletal: no symptoms reported Skin: no symptoms reported Psychiatric/Neurological: No Symptoms Reported Physical Exam Physical Exam Vital Signs Vital Signs - First Documented 02/13/22 05:02 Temp 36.1 Pulse 84 Resp 16 B/P (MAP) 124/74 (91) Pulse Ox 98 O2 Delivery Room Air Capillary Refill : Less Than 3 Seconds Height, Weight, BMI Height: 5'2.00" Weight: 141lbs. 0.0oz. 63.531825cp; 40.31 BMI Method: General Appearance: No Apparent Distress, WD/WN, Obese HEENT: PERRL/EOMI, Moist Mucous Membranes; No Scleral Icterus (L), No Scleral Icterus (R) Neck: Normal Inspection, Supple Respiratory: Lungs Clear, No Accessory Muscle Use, No Respiratory Distress Cardiovascular: Regular Rate, Rhythm, No JVD, No Murmur Gastrointestinal: Normal Bowel Sounds, Non Tender, Soft; No Distended, No Guarding Extremity: Normal Capillary Refill, No Calf Tenderness, No Pedal Edema Neurologic/Psychiatric: Alert, Oriented x3, Normal Mood/Affect Skin: Normal Color, Warm/Dry Results Results/Procedures Labs Laboratory Tests 02/13/22 04:54 Patient resulted labs reviewed. Imaging: Reviewed Imaging Report [facility] [place] [place] NAME: JOHN LEOS MED REC#: [id number] PT STATUS: REG ER : 1930 PHYSICIAN: MARYCRUZ PEDRAZA DO ADMIT DATE: 02/13/22/ER FS Signed Date of Exam:02/13/22 CT ABDOMEN/PELVIS WO PROCEDURE: CT abdomen and pelvis without contrast. TECHNIQUE: Multiple contiguous axial images were obtained through the abdomen and pelvis without the use of intravenous contrast. Auto Exposure Controls were utilized during the CT exam to meet ALARA standards for radiation dose reduction. INDICATION: Left flank pain Lung bases are clear. Liver appears normal. There is a small calculus in the gallbladder. Pancreas is unremarkable. Spleen is not enlarged. There is a small sliding hiatal hernia. The right kidney surgically absent. There is a cluster stones in the lower pole of left kidney and a ventral calyx. There is no hydronephrosis. Ureters not dilated. Urinary bladder is normal. Uterus is surgically absent. Small bowel is not dilated. There is fecal retention in the ascending colon. There is diverticulosis of the colon without evidence of diverticulitis. IMPRESSION: Fecal stasis. Uncomplicated diverticulosis of the colon. Left nephrolithiasis without evidence of obstruction. Dictated by: Dictated on workstation # [id number] Dict: 02/13/2228 Trans: 02/13/2232 TCB [id number] Interpreted by: THOM CERVANTES MD Electronically signed by: THOM CERVANTES MD 02/13/2232 [facility], [place] NAME: JOHN LEOS [facility] REC#: [id number] PT STATUS: ADM Vaibhav : 1930 PHYSICIAN: MARYCRUZ PEDRAZA DO ADMIT DATE: 02/13/22/[facility] Signed Date of Exam:02/13/22 CT ANGIO CHEST/ABD W PROCEDURE: CT angiography of the abdomen and chest with and without contrast. TECHNIQUE: After intravenous administration of contrast, thin section axial CT angiography of the abdomen and chest were obtained. 3D MIP reformats were provided. Auto Exposure Controls were utilized during the CT exam to meet ALARA standards for radiation dose reduction. INDICATION: Right flank pain, back pain, elevated D-dimer. History of renal malignancy with a partial left and complete right nephrectomy. Most recent chest CT nonenhanced 03/30/2018. Most recent abdominal pelvic imaging nonenhanced earlier this same date. CHEST: There are right lower lobe pulmonary arterial filling defects consistent with a pulmonary arterial embolus. The left-sided pulmonary arterial branches appeared well opacified and patent. There were no findings of right heart strain the PE burden in this patient is mild. There is no intracardiac chamber mass or thrombus. The atherosclerotic aorta is patent and nonaneurysmal and nonacute. No findings of mural hemorrhage, dissection or rupture. No findings of pneumonia or pulmonary edema. No effusion or pneumothorax. No acute chest wall abnormality. There is no axillary, hilar or mediastinal lymphadenopathy. There is a small hiatal hernia. ABDOMEN: The atherosclerotic abdominal aorta is patent and nonaneurysmal and nonacute. The celiac, the superior mesenteric and the takeoff of the inferior mesenterics are all widely patent. The left main renal artery is patent as is a smaller lower pole accessory branch. 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 There were no findings to suggest neoplastic recurrence. There is no abdominal mesenteric or retroperitoneal lymphadenopathy. During the arterial phase hepatic, splenic, adrenal and pancreatic parenchymal enhancement appeared unremarkable. No identifiable mass effect. No organomegaly. No ascites. No abscess, hematoma or acute fluid collection. There is no focal inflammatory process. There is mildly elevated colonic fecal load without overt obstruction. No bowel wall thickening. There is degenerative changes to the bony structures but no acute osseous pathology. IMPRESSION: CHEST: Exam confirms the presence of a relatively mild burden of right lower lobe pulmonary arterial embolic disease without features of right heart strain or saddle embolus. The atherosclerotic aorta is patent and nonaneurysmal and nonacute. No dissection or mural hematoma. No findings of pneumonia, edema or thoracic metastatic disease. ABDOMEN: Right nephrectomy. Postsurgical changes to the unobstructed left kidney without evidence for neoplastic recurrence. Atherosclerotic aorta without stenosis, dissection, mural hematoma, arterial thrombus or end organ ischemia. No findings of abdominal metastatic disease. Small hiatal hernia noted. Results discussed with the Emergency Room physician. Dictated by: Dictated on workstation # [id number] Dict: 02/13/22 [id number] Trans: 02/13/22 1221 [facility] [id number] Interpreted by: AMOR COCHRAN Electronically signed by: AMOR COCHRAN 02/13/22 1221 Assessment/Plan Admission Diagnosis Pulmonary embolism Admission Status: Observation Assessment and Plan Pulmonary embolism Incidentally found Unprovoked Will start Eliquis tonight Discussed with pharmacy to see if available [place] [facility]B program Monitor on tele Abd pain Nephrolithiasis Fecal Stasis Will start bowel regimen Discussed with Dr Llamas who will see in AM HTN Son to bring in home meds, will resume and she can take her own meds DVT ppx: Eliquis Diagnosis/Problems Diagnosis/Problems (1) Nephrolithiasis (2) Pulmonary embolism Qualifiers: Pulmonary embolism type: unspecified Chronicity: acute Acute cor pulmonale presence: without acute cor pulmonale Qualified Codes: I26.99 - Other pulmonary embolism without acute cor pulmonale (3) Essential (primary) hypertension (4) Sick sinus syndrome MARIO ALCAZAR MD Feb 13, 2022 14:50
[2022-02-13] MEDS ORDERED: SENNA W/DOCUSATE (SENOKOT S) TABLET PO PRN (15:00)
[2022-02-13 16:00] VITALS: BP 133/73
--- NOTE | 2022-02-13 16:14 | Discharge Inst-Simple/Standard ---
Discharge Inst-Standard Discharge Medications New, Converted or Re-Newed RX: Transmitted to Pharmacy Patient Instructions/Follow Up Plan of Care/Instructions/FU: Please continue to take your medications as written. Please follow up with your primary care doctor to follow up this hospital stay. Activity as Tolerated: Yes Discharge Diet: No Restrictions Return to The Hospital For: Chest pain, shortness of breath, dark stools, vomiting blood, if you fall and hit your head fever, weakness, if you feel you are getting worse. MARIO ALCAZAR MD Feb 13, 2022 16:14
[2022-02-13 16:23] VITALS: BP 179/75
[2022-02-13] MEDS ORDERED: RT-ALBUTEROL SULF 2.5 MG/3 ML PRE-MIX VIAL INH PRN (16:30)
[2022-02-13 20:00] VITALS: BP 145/69
[2022-02-13] MEDS: lisINopril 20 MG (PRINIVIL) TABLET PO SCH (20:07)
[2022-02-13] MEDS ORDERED: NON-FORMULARY MEDICATION 1 EA EA (Carvedilol 25 MG) PO SCH (21:00)
[2022-02-13] MEDS ORDERED: ASPIRIN E.C. 81 MG (ECOTRIN) TAB PO SCH (21:00)
[2022-02-13] MEDS ORDERED: FLECAINIDE 100 MG (TAMBOCOR) TAB PO SCH (21:30)
[2022-02-13] MEDS ORDERED: NON-FORMULARY MEDICATION 1 EA EA (Flecainide Acetate 50 MG) PO SCH (21:30)
[2022-02-13 23:53] VITALS: BP 129/83
[2022-02-14 03:38] VITALS: BP 129/71
[2022-02-14 05:43] LABS: HEMATOCRIT 29 % (35-52); HEMOGLOBIN 9.4 g/dL (11.5-16.0); MEAN CORPUSCULAR HEMOGLOBIN 29 pg (25-34); MEAN CORPUSCULAR HGB CONC 33 g/dL (32-36); MEAN CORPUSCULAR VOLUME 88 fL (80-99); MEAN PLATELET VOLUME 9.9 fL (9.0-12.2); PLATELET COUNT 209 10^3/uL (130-400); WHITE BLOOD COUNT 8.1 10^3/uL (4.3-11.0)
[2022-02-14] MEDS ORDERED: PATIENT MAY USE OWN MED,SINGLE MED PO SCH ×4 (06:00)
[2022-02-14 06:01] LABS: POTASSIUM 3.8 MMOL/L (3.6-5.0)
[2022-02-14 06:02] LABS: CALCIUM 8.7 MG/DL (8.5-10.1)
[2022-02-14 06:06] LABS: CREATININE SERUM 1.18 MG/DL (0.60-1.30)
[2022-02-14 06:09] LABS: INR 1.4 (0.8-1.4); PROTHROMBIN TIME PATIENT 17.7 SEC (12.2-14.7)
[2022-02-14 07:58] VITALS: BP 136/61
[2022-02-14] MEDS ORDERED: FOLIC ACID 800 MCG PO SCH (09:00)
[2022-02-14] MEDS ORDERED: CARVEDILOL 25 MG TABLET PO SCH (09:00)
[2022-02-14] MEDS ORDERED: FOLIC ACID 1 MG TAB PO SCH (09:00)
--- NOTE | 2022-02-14 09:03 | Discharge Summary ---
Diagnosis/Chief Complaint Date of Admission Feb 13, 2022 at 10:10 Date of Discharge Discharge Date: Feb 14, 2022 Admission Diagnosis Pulmonary embolism Primary Care No,Local Physician Discharge Diagnosis (1) Nephrolithiasis (2) Pulmonary embolism (3) Essential (primary) hypertension (4) Sick sinus syndrome Discharge Summary Discharge Physical Exam Allergies: Coded Allergies: Sulfa (Sulfonamide Antibiotics) (Verified Allergy, Unknown, 03/17/18) nitrofurantoin (Verified Allergy, Unknown, 03/17/18) Vitals & I&Os Vital Signs Date Time Temp Pulse Resp B/P (MAP) Pulse Ox O2 Delivery O2 Flow Rate FiO2 02/14/22 07:58 37.3 60 18 136/61 (86) 94 Room Air Hospital Course Labs (last 24 hrs) Laboratory Tests 02/14/22 05:25: White Blood Count 8.1, Red Blood Count 3.27L, Hemoglobin 9.4L, Hematocrit 29L, Mean Corpuscular Volume 88, Mean Corpuscular Hemoglobin 29, Mean Corpuscular Hemoglobin Concent 33, Red Cell Distribution Width 14.8H, Platelet Count 209, Mean Platelet Volume 9.9, Prothrombin Time 17.7H, INR Comment 1.4, Sodium Level 136, Potassium Level 3.8, Chloride Level 104, Carbon Dioxide Level 20L, Anion Gap 12, Blood Urea Nitrogen 21H, Creatinine 1.18, Estimat Glomerular Filtration Rate 44, BUN/Creatinine Ratio 18, Glucose Level 124H, Calcium Level 8.7 Patient resulted labs reviewed. Pending Labs Laboratory Tests 02/14/22 05:25: White Blood Count 8.1, Red Blood Count 3.27, Hemoglobin 9.4, Hematocrit 29, Mean Corpuscular Volume 88, Mean Corpuscular Hemoglobin 29, Mean Corpuscular Hemoglobin Concent 33, Red Cell Distribution Width 14.8, Platelet Count 209, Mean Platelet Volume 9.9, Prothrombin Time 17.7, INR Comment 1.4, Sodium Level 136, Potassium Level 3.8, Chloride Level 104, Carbon Dioxide Level 20, Anion Gap 12, Blood Urea Nitrogen 21, Creatinine 1.18, Estimat Glomerular Filtration Rate 44, BUN/Creatinine Ratio 18, Glucose Level 124, Calcium Level 8.7 Imaging: Reviewed Imaging Report Discharge Home Medications: Active Scripts Active Eliquis (Apixaban) 5 Mg Tablet 5 Mg PO BID 30 Days TAKE 2 TABLETS BID X 7 DAYS, THEN 1 TABLET BID Reported Aspirin EC (Aspirin) 81 Mg Tablet.dr 81 Mg PO HS Folic Acid 1 Mg Tablet 1 Mg PO DAILY Carvedilol 25 Mg Tablet 25 Mg PO BID Flecainide Acetate 50 Mg Tablet 50 Mg PO Lisinopril 20 Mg Tablet 20 Mg PO BID Instructions to patient/family Please see electronic discharge instructions given to patient. Problem Qualifiers (1) Pulmonary embolism: Pulmonary embolism type: unspecified Chronicity: acute Acute cor pulmonale presence: without acute cor pulmonale Qualified Codes: I26.99 - Other pulmonary embolism without acute cor pulmonale MARIO ALCAZAR MD Feb 14, 2022 09:03
[2022-02-14] MEDS: APIXABAN 5 MG (ELIQUIS) TABLET PO SCH (09:08)
[2022-02-14] MEDS: lisINopril 20 MG (PRINIVIL) TABLET PO SCH (09:08)
[2022-02-14] MEDS ORDERED: FLECAINIDE 100 MG (TAMBOCOR) TAB PO SCH (09:30)
[2022-02-14 11:35] VITALS: BP 111/59
--- NOTE | 2022-02-14 11:51 | CONSULTATION REPORT ---
DATE OF SERVICE: 02/14/2022 ATTENDING PHYSICIAN: Dr. Morrison. SUMMARY: After reviewing the patient's record, interviewing her and examining her, this is a very sharp 89-year-old lady who was found to have some cluster of stones in the lower pole of the left kidney with no obstruction. She denies knowing about it and has never passed stones before. Has history of renal cell carcinoma that was removed and doing well since follow up at . She has no left flank tenderness. IMPRESSION: Left lower pole renal stones. No obstruction. RECOMMENDATIONS: Observation at this point and we will see her on a p.r.n. basis. I told her if she developed with left flank pain to be aware that this stone moved and to seek medical advice. She fully understands. CC: Dr. Morrison - requested, unable to deliver. Job ID: [id number] DocumentID: [id number] Dictated Date: 02/14/2022 09:22:48 Ob Nurse Date: 02/14/2022 11:51:22 Dictated By: GLORIA SUN MD
[2022-02-14 15:08] VITALS: BP 111/59
[2022-02-20] MEDS ORDERED: APIXABAN 5 MG (ELIQUIS) TABLET PO SCH (09:00)
== END 2022-02-14 12:25 | disposition home or self-care (01) ==
LOC: EDUNIT# 04:40 → ER FS 04:42 → UNDOADMOB 10:10 → 4TH 10:10 → UNDODISOB 02-14 14:35
PROVIDERS: ADMIT Family Medicine; ATTEND Family Medicine
DX: I26.99 Other pulmonary embolism without acute cor pulmonale (principal); N20.0 Calculus of kidney; I10 Essential (primary) hypertension; I49.5 Sick sinus syndrome; I82.409 Acute embolism and thrombosis of unspecified deep veins of unspecified lower extremity; Z79.01 Long term (current) use of anticoagulants
CPT/HCPCS: 36415; 71275; 74175; 74176; 80048; 80053; 81000; 83880; 84484; 85025; 85027; 85379; 85610; 87077; 87088; 87186; 93005; G0378; Q9967

== ENCOUNTER 2022-03-03 14:16 | Emergency (ER) | payer MEDICARE ==
[~2022-03-03 14:16] MED LIST changes: +LIDO700A45 TP
[2022-03-03 14:26] VITALS: BP 164/75
== END 2022-03-03 14:30 | disposition home or self-care (01) ==
LOC: EDUNIT# 14:16 → ER FS 14:17
DX: R03.0 Elevated blood-pressure reading, without diagnosis of hypertension (principal)

== ENCOUNTER 2022-04-14 12:47 | Outpatient (RCR) | payer MEDICARE ==
[2022-04-07] MEDS: IRON SUCROSE 200 MG/10 ML (VENOFER) VIAL IV SCH (13:56)
[2022-04-07 15:00] VITALS: BP 170/87
[2022-04-09 13:05] VITALS: BP 113/63
[2022-04-09] MEDS: IRON SUCROSE 200 MG/10 ML (VENOFER) VIAL IV SCH (13:48)
[2022-04-11 13:01] VITALS: BP 147/75
[2022-04-11] MEDS: IRON SUCROSE 200 MG/10 ML (VENOFER) VIAL IV SCH (13:30)
[~2022-04-14] VITALS: Ht 156.2 cm; Wt 68.2 kg
[~2022-04-14 12:47] MED LIST changes: +EPINEPHrine 0.1 MG/ML 10 ML (HOSPIRA) SYR IV PRN; +EPINEPHrine INJECTION 1 MG/ML AMP IM PRN; +FAMOTIDINE 20MG/2ML IV (PEPCID) IV PRN; +RT-ALBUTEROL SULF 2.5 MG/3 ML PRE-MIX VIAL IH PRN; +diphenhydrAMINE 50 MG/ML INJ (BENADRYL) IV PRN; +methylPREDNISolone 125 MG (Solu-MEDROL) VIAL IV PRN
[2022-04-14] MEDS ORDERED: IRON SUCROSE 200 MG/10 ML (VENOFER) VIAL IV SCH (13:15)
[2022-04-14] MEDS: IRON SUCROSE 200 MG/10 ML (VENOFER) VIAL IV SCH (13:18)
[2022-04-14 13:25] VITALS: BP 166/81
== END 2022-04-30 | disposition home or self-care (01) ==
LOC: SDC 12:47
PROVIDERS: ATTEND Emergency Medicine
DX: D50.0 Iron deficiency anemia secondary to blood loss (chronic) (principal)
CPT/HCPCS: 96365